=== PATIENT | male | born 1975 | race Caucasian/White ===

== ENCOUNTER 2020-08-04 12:47 | Emergency (ER) | payer OTHER, SELFPAY ==
[2020-08-04 13:00] VITALS: BP 120/77; PULSE 62; RESP 16; TEMP 36.8; O2SAT 99
--- NOTE | 2020-08-04 13:05 | ED.DENTAL ---
HPI - Dental/Oral General Chief complaint: Dental/Oral Stated complaint: infection in mouth Time Seen by Provider: 08/04/20 13:05 Source: patient History of Present Illness HPI Narrative: Patient presents with a long history of dental caries. Patient states he has not seen a dentist in many years. Patient states he has noticed more drainage from the right upper teeth. Patient denies any fever and is able to open his mouth fully. Patient states the drainage from the tooth is what brought him into the express care today. Teeth map: 1. fractured teeth 2. dental caris 3. swelling and tenderness to gums no drainable abscess Related Data Home Medications Medication Instructions Recorded Confirmed dicyclomine 20 mg PO QID 08/04/20 08/04/20 duloxetine 60 mg PO DAILY 08/04/20 08/04/20 famotidine 40 mg PO BID 08/04/20 08/04/20 irbesartan 150 mg PO DAILY 08/04/20 08/04/20 naproxen 500 mg PO BID 08/04/20 08/04/20 quetiapine 100 mg PO HS 08/04/20 08/04/20 Allergies Allergy/AdvReac Type Severity Reaction Status Date / Time aspirin Allergy Swelling Verified 08/04/20 13:13 of Lip/Tongue/Throat gabapentin Allergy Swelling Verified 08/04/20 13:13 Review of Systems Review of Systems: Narrative: CONSTITUTIONAL: Denies fever, chills, or sweats. EYES: Denies visual changes, redness, or discharge. ENT: Denies rhinorrhea, congestion, sore throat, or otalgia. NO FEVER. NO JAW SWELLING. NO NECK SWELLING. NO LIMITATION WITH SPEAKING OR SWALLOWING. HAS A HISTORY OF DENTAL CARIES. HAS NOT SEEN A DENTIST RECENTLY. CARDIOVASCULAR: Denies chest pain, palpitations, or edema. RESPIRATORY: Denies cough or dyspnea. GASTROINTESTINAL: Denies abdominal pain, nausea, vomiting, or diarrhea. GENITOURINARY: Denies dysuria or hematuria. SKIN: Denies rash or itching. MUSCULOSKELETAL: Denies back pain, joint pain, or myalgia. NEUROLOGIC: Denies headache, numbness, or weakness. PSYCHIATRIC: Denies anxiety or depression. [facility] Comments At time of signature, agree with nursing past medical, surgical, social and family history. There is no relevant family history pertinent to the presenting complaint Exam Narrative: Exam Narrative: GENERAL: Well-appearing, well-nourished, and in no acute distress. HEAD: Normocephalic, atraumatic. EYES: PERRLA and EOMI. ENT: Nares clear, no rhinorrhea or epistaxis. Mucous membranes moist. NO SHEEBA APICAL SWELLING, TOOTH TENDER TO PALPATION. NO FACIAL SWELLING. NO TRISMUS. ABLE TO OPEN MOUTH FULLY. NO NECK SWELLING OR AVA'S ANGINA. NO ABSCESS TO BE DRAINED. no drooling, trismus, facial asymmetry or significant neck swelling NECK: Supple. CHEST: Clear to auscultation. No respiratory distress. HEART: Regular rate and rhythm. No murmur heard. Normal peripheral pulses. ABDOMEN: Soft, nontender, nondistended, normal active bowel sounds. EXTREMITIES: Normal range of motion. No edema. SKIN: Warm, dry, no rash. NEURO: No focal deficits. Alert and oriented x3. [place] Coma Scale Eye Opening: Spontaneous 4 [place] Coma Scale Motor: Obeys Commands 6 [place] Coma Scale Verbal: Oriented 5 [place] Coma Scale Total 15 Course Vital Signs Vital signs: Vital Signs Temperature 36.8 C 08/04/20 13:00 Pulse Rate 62 08/04/20 13:00 Respiratory Rate 16 08/04/20 13:00 Blood Pressure 120/77 08/04/20 13:00 Pulse Oximetry 99 08/04/20 13:00 Temperature 36.8 C 08/04/20 13:00 Pulse Rate 62 08/04/20 13:00 Respiratory Rate 16 08/04/20 13:00 Blood Pressure 120/77 08/04/20 13:00 Pulse Oximetry 99 08/04/20 13:00 MDM - Dental/Oral Differential Diagnosis Differential diagnosis: Likely gingival abscess, dental caries, toothache, dental abscess, fracture of tooth and aphthous ulcer Critical Care Time Critical Care Time Critical Care Time: No Discharge Plan Discharge Clinical Impression: Toothache, Dental abscess, Dental caries, Fracture of tooth Patient Disposition: Home, Self-Care
== END 2020-08-04 13:26 | disposition home or self-care (01) ==
PROVIDERS: Emergency Provider Nurse Practitioner Family
DX: K08.89 Other specified disorders of teeth and supporting structures (principal); K04.7 Periapical abscess without sinus; K02.9 Dental caries, unspecified; S02.5XXA Fracture of tooth (traumatic), initial encounter for closed fracture; X58.XXXA Exposure to other specified factors, initial encounter; I10 Essential (primary) hypertension; M79.7 Fibromyalgia; F32.9 Major depressive disorder, single episode, unspecified
CPT/HCPCS: 99213; G0463

== ENCOUNTER 2020-12-23 11:01 | Emergency (ER) | payer OTHER, SELFPAY ==
[2020-12-23 11:13] VITALS: BP 129/77; PULSE 60; RESP 20; TEMP 37.2; O2SAT 98
--- NOTE | 2020-12-23 11:46 | ED.NAVMDI ---
HPI - Nausea/Vomiting/Diarrhea General Chief complaint: Nausea/Vomiting/Diarrhea Stated complaint: vomiting,stomach pain, needs work note Source: patient and RN notes reviewed Limitations: no limitations History of Present Illness HPI Narrative: The patient, non-smoker/nondrinker on several meds, presents with emesis. Patient states he had the onset of nonbilious emesisx1 at work at [employer] yesterday and was sent home; this was followed by 1 or 2 more episodes overnight. He attributes symptoms due to constipation , which has resolved this morning. Symptoms have improved or absent now, and he wants a work note, as well as refill of prior meds [some chronic, as result of pediatric head injury]. He has no fever, cough,SOB, wheezing, diarrhea, loss of taste/smell, abdominal pain, vomiting blood, sore throat, earache, prior abdominal surgeries, sick contacts . Clinic test for Covid antigen is negative Related Data Home Medications Medication Instructions Recorded Confirmed naproxen 500 mg PO BID 08/04/20 12/23/20 quetiapine 100 mg PO HS 08/04/20 12/23/20 montelukast [Singulair] 10 mg PO DAILY 12/23/20 12/23/20 Allergies Allergy/AdvReac Type Severity Reaction Status Date / Time aspirin Allergy Swelling Verified 12/23/20 11:31 of Lip/Tongue/Throat gabapentin Allergy Swelling Verified 12/23/20 11:31 Review of Systems Review of Systems: Narrative: General/Constitutional: No weight loss,fever Eyes: N0: Redness,discharge Ears/Nose/Throat: No: Epistaxis,ear discharge Respiratory: Denies: Hemoptysis Gastrointestinal: Reports Vomiting, no Bleeding-rectal Skin: No Lumps, eruption Neurologic: No Focal Weakness,Sz Hematologic: Denies: Petechiae/Purpura Psychiatric: No: Suicida ideationl All Other Systems: Reviewed and Negative [facility] Comments At time of signature, agree with nursing past medical, surgical, social and family history. There is no relevant family history pertinent to the presenting complaint Exam Narrative: Exam Narrative: General Appearance: Well appearing, Conjunctiva clear Ears: External ear normal Nose: Normal nose Mouth/Throat: Normal appearing, Normal lips Neck: Supple Respiratory: Airway patent, No respiratory distress Cardiovascular: RRR Abdomen: Soft, Non-tender, No massess, No organomegaly Musculoskeletal: Full ROM Skin: Warm, Dry Neurological: A&O x3,, Normal affect Course Vital Signs Vital signs: Vital Signs Temperature 98.9 F 12/23/20 11:13 Pulse Rate 60 12/23/20 11:13 Respiratory Rate 20 12/23/20 11:13 Blood Pressure 129/77 12/23/20 11:13 Pulse Oximetry 98 12/23/20 11:13 Temperature 98.9 F 12/23/20 11:13 Pulse Rate 60 12/23/20 11:13 Respiratory Rate 20 12/23/20 11:13 Blood Pressure 129/77 12/23/20 11:13 Pulse Oximetry 98 12/23/20 11:13 MDM - Nausea/Vomiting/Diarrhea Lab Data Labs: Lab Results 12/23/20 Range/Units Unknown POC SARS CoV-2 Ag Negative (Negative) Discharge Plan Discharge Clinical Impression: Vomiting Qualifiers: Vomiting type: unspecified Vomiting Intractability: non-intractable Nausea presence: without nausea Qualified Code(s): R11.11 - Vomiting without nausea Patient Disposition: Home, Self-Care Condition: Stable Prescriptions: New ondansetron HCl [Zofran] 4 mg tablet 4 mg PO Q8H PRN (Reason: nausea and vomiting) Qty: 10 RF: 0 losartan 25 mg tablet 25 mg PO DAILY Qty: 30 RF: 2 quetiapine 100 mg tablet 100 mg PO HS Qty: 30 RF: 2 No Action montelukast [Singulair] 10 mg Tablet 10 mg PO DAILY RF: 0 quetiapine 100 mg Tablet 100 mg PO HS RF: 0 naproxen 500 mg Tablet 500 mg PO BID RF: 0 Adult Probiotic 3 billion cell capsule 3,000 mmu cells PO DAILY Qty: 14 RF: 0 Other Ambulatory Orders: SARS-CoV-2 RNA, Qual RT-PCR (Routine) Location: Determined by Patient Ordered By: Jose A Potts Follow-up/Referrals: [facility]
== END 2020-12-23 11:58 | disposition home or self-care (01) ==
PROVIDERS: Emergency Provider Emergency Medicine
DX: R11.11 Vomiting without nausea (principal); Z20.822 Contact with and (suspected) exposure to COVID-19; I10 Essential (primary) hypertension; F32.9 Major depressive disorder, single episode, unspecified; M79.7 Fibromyalgia
CPT/HCPCS: 87426; 99213; C9803; G0463

== ENCOUNTER 2021-02-01 12:24 | Emergency (ER) | payer OTHER, SELFPAY ==
[2021-02-01 12:35] VITALS: BP 122/87; PULSE 60; RESP 20; TEMP 36.8; O2SAT 99
--- NOTE | 2021-02-01 12:43 | ED.DENTAL ---
HPI - Dental/Oral General Chief complaint: Dental/Oral Stated complaint: Nausea/Vomitting Time Seen by Provider: 02/01/21 12:43 Source: patient and RN notes reviewed History of Present Illness HPI Narrative: Patient is a 45-year-old male who presents the urgent care with complaints of needing a work note for 1 episode of vomiting yesterday. Patient then proceeds to say that he is here for dental pain . Patient states that he believes his vomiting x1 yesterday at work was related to his IBS and constipation. Patient states that he does have Zofran at home and uses it as needed for nausea. Patient denies of any upper respiratory symptoms. States that the dental pain has been going on for months and he currently does not have a dentist to follow-up with. Patient denies of any fever, chills, diarrhea or abdominal pain. Currently denies of any nausea or vomiting. No other acute complaints. No acute distress noted. Patient aware of the plan of care. Some parts of this dictation were generated by voice recognition software and may contain typographical and/or grammatical inaccuracies. Related Data Home Medications Medication Instructions Recorded Confirmed montelukast [Singulair] 10 mg PO DAILY 12/23/20 02/01/21 beclomethasone dipropionate [Qvar 1 inh INHALATION Q12H 02/01/21 02/01/21 RediHaler] famotidine 40 mg PO DAILY 02/01/21 02/01/21 pravastatin 20 mg PO DAILY 02/01/21 02/01/21 Allergies Allergy/AdvReac Type Severity Reaction Status Date / Time aspirin Allergy Swelling Verified 02/01/21 12:47 of Lip/Tongue/Throat gabapentin Allergy Swelling Verified 02/01/21 12:47 Review of Systems Review of Systems: Narrative: CONSTITUTIONAL: Denies fever, chills, or sweats. EYES: Denies visual changes, redness, or discharge. ENT: Denies rhinorrhea, congestion, sore throat, or otalgia. Reports of upper right dental pain CARDIOVASCULAR: Denies chest pain, palpitations, or edema. RESPIRATORY: Denies cough or dyspnea. GASTROINTESTINAL: Denies abdominal pain, nausea, vomiting, or diarrhea. GENITOURINARY: Denies dysuria or hematuria. SKIN: Denies rash or itching. MUSCULOSKELETAL: Denies back pain, joint pain, or myalgia. NEUROLOGIC: Denies headache, numbness, or weakness. All other systems reviewed are negative, except as documented in HPI. [facility] Comments At the time of my signature, I reviewed and agree with the nursing past medical, surgical, social, and family history. There is no relevant family history pertinent to the patient complaint. Exam Narrative: Exam Narrative: GENERAL: This is a well-nourished, well-developed patient, in no apparent distress. HEAD: normocephalic, atraumatic. EYES: PERRL. Sclera clear/white. Vision is grossly intact. EARS: External ears normal NOSE: External nose normal with no obvious nasal discharge, nares without redness, no rhinorrhea. THROAT: Mucous membranes moist DENTAL: Poor dental hygiene. Completely avulsed second premolar to the upper right with surrounding erythema and very mild edema. NECK: Neck supple SKIN: warm, intact with no suspicious lesions or rash, good texture and turgor. NEURO: awake, alert, and oriented to person, place and time. There were no obvious focal neurologic abnormalities. EXTREMITIES: No clubbing, cyanosis, or edema. Course Vital Signs Vital signs: Vital Signs Temperature 98.2 F 02/01/21 12:35 Pulse Rate 60 02/01/21 12:35 Respiratory Rate 20 02/01/21 12:35 Blood Pressure 122/87 02/01/21 12:35 Pulse Oximetry 99 02/01/21 12:35 Temperature 98.2 F 02/01/21 12:35 Pulse Rate 60 02/01/21 12:35 Respiratory Rate 20 02/01/21 12:35 Blood Pressure 122/87 02/01/21 12:35 Pulse Oximetry 99 02/01/21 12:35 Reviewed MDM - Dental/Oral MDM Narrative Medical decision making narrative: Advised the patient to use his at home supply of Zofran as needed for nausea. It appears that your one episode of vomiting is related to your c
== END 2021-02-01 12:58 | disposition home or self-care (01) ==
PROVIDERS: Emergency Provider Nurse Practitioner Family; PCP Family Medicine
DX: K04.7 Periapical abscess without sinus (principal); E78.00 Pure hypercholesterolemia, unspecified; I10 Essential (primary) hypertension; J45.909 Unspecified asthma, uncomplicated; K21.9 Gastro-esophageal reflux disease without esophagitis; M79.7 Fibromyalgia; F31.9 Bipolar disorder, unspecified
CPT/HCPCS: 99213; G0463

== ENCOUNTER 2021-12-20 11:11 | Emergency (ER) | payer OTHER, SELFPAY ==
[2021-12-20 11:17] VITALS: BP 119/84; PULSE 90; RESP 16; TEMP 36.7; O2SAT 99
--- NOTE | 2021-12-20 11:17 | ED.SKABFB ---
HPI - Skin/Abscess/Foreign Bdy General Chief complaint: Skin/Abscess/Foreign Body Stated complaint: left arm scratch poss infection Time Seen by Provider: 12/20/21 11:17 Source: patient and RN notes reviewed History of Present Illness HPI narrative: Patient is a 46-year-old male who presents the urgent care with complaints of a scratch to the left arm. Patient states that it worked 3 days ago he scratched it on a shelf. Patient states that yesterday it had a lot of redness which is since subsided. Patient denies of any fever, nausea, vomiting. Patient has been using Neosporin to the area. Denies any history of staph. Patient is not up-to-date on his tetanus shot. No other acute complaints. No acute distress noted. Patient read the plan of care. Some parts of this dictation were generated by voice recognition software and may contain typographical and/or grammatical inaccuracies. Related Data Home Medications Medication Instructions Recorded Confirmed montelukast [Singulair] 10 mg PO DAILY 12/23/20 12/20/21 famotidine 40 mg PO BID 02/01/21 12/20/21 pravastatin 20 mg PO DAILY 02/01/21 12/20/21 pregabalin 100 mg PO BID 12/20/21 12/20/21 Allergies Allergy/AdvReac Type Severity Reaction Status Date / Time amoxicillin Allergy Rash Verified 12/20/21 11:24 aspirin Allergy Swelling Verified 02/01/21 12:47 of Lip/Tongue/Throat gabapentin Allergy Swelling Verified 02/01/21 12:47 Review of Systems Review of Systems: CONSTITUTIONAL: Denies fever, chills, or sweats. EYES: Denies visual changes, redness, or discharge. ENT: Denies rhinorrhea, congestion, sore throat, or otalgia. CARDIOVASCULAR: Denies chest pain, palpitations, or edema. RESPIRATORY: Denies cough or dyspnea. GASTROINTESTINAL: Denies abdominal pain, nausea, vomiting, or diarrhea. GENITOURINARY: Denies dysuria or hematuria. SKIN: Reports of a possibly infected scratch to the left forearm MUSCULOSKELETAL: Denies back pain, joint pain, or myalgia. NEUROLOGIC: Denies headache, numbness, or weakness. All other systems reviewed are negative, except as documented in HPI. [facility] Comments At the time of my signature, I reviewed and agree with the nursing past medical, surgical, social, and family history. There is no relevant family history pertinent to the patient complaint. Exam Narrative: GENERAL: This is a well-nourished, well-developed patient, in no apparent distress. HEAD: normocephalic, atraumatic. EYES: PERRL. Sclera clear/white. Vision is grossly intact. EARS: External ears normal NOSE: External nose normal with no obvious nasal discharge, nares without redness, no rhinorrhea. THROAT: Mucous membranes moist NECK: Neck supple CARDIOVASCULAR: Regular rate and rhythm without murmurs, gallops, or rubs. RESPIRATORY: Clear to auscultation. Breath sounds equal bilaterally. No wheezes, rales, or rhonchi. SKIN: Healing 6 cm scabbed superficial linear abrasion to the left inner forearm with mild erythema to the area. 2 x 2 centimeter ecchymotic region near the abrasion. Warm, intact with no suspicious lesions or rash, good texture and turgor. NEURO: awake, alert, and oriented to person, place and time. There were no obvious focal neurologic abnormalities. EXTREMITIES: No clubbing, cyanosis, or edema. Course Course Level of Care: Express Care Visit Vital Signs Vital signs: Vital Signs Temperature 98.0 F 12/20/21 11:17 Pulse Rate 90 12/20/21 11:17 Respiratory Rate 16 12/20/21 11:17 Blood Pressure 119/84 12/20/21 11:17 Pulse Oximetry 99 12/20/21 11:17 Temperature 98.0 F 12/20/21 11:17 Pulse Rate 90 12/20/21 11:17 Respiratory Rate 16 12/20/21 11:17 Blood Pressure 119/84 12/20/21 11:17 Pulse Oximetry 99 12/20/21 11:17 Reviewed MDM - Skin/Abscess/Foreign Bdy MDM Narrative Medical decision making narrative: Advised patient to continue cleaning the area with plain Dial soap and water. Use the prescription cream to t
[2021-12-20] MEDS: TETANUS,DIPHTHERIA,AC PERTUSSIS ADULT (0.5 ML) BOOSTRIX IM (11:32)
== END 2021-12-20 11:53 | disposition home or self-care (01) ==
PROVIDERS: Emergency Provider Nurse Practitioner Family
DX: S50.812A Abrasion of left forearm, initial encounter (principal); W22.8XXA Striking against or struck by other objects, initial encounter; Z23 Encounter for immunization; E78.00 Pure hypercholesterolemia, unspecified; I10 Essential (primary) hypertension; J45.909 Unspecified asthma, uncomplicated; K21.9 Gastro-esophageal reflux disease without esophagitis; M79.7 Fibromyalgia; F31.9 Bipolar disorder, unspecified
CPT/HCPCS: 90471; 90715; 99213; G0463

== ENCOUNTER 2022-03-23 08:54 | Emergency (ER) | payer OTHER, SELFPAY ==
--- NOTE | ~2022-03-23 | XR_ITS ---
XR finger 2nd LT min 2V DATE: 03/23/2022 09:13 INDICATION: Smashed second digit in car door. Pain and bleeding around the medial. TECHNIQUE: 5 views COMPARISON: None FINDINGS: There is mild osteoarthritis at the second metacarpophalangeal and distal interphalangeal j oints. There is a nondisplaced linear fracture of the tuft of the distal phalanx. No other fracture is noted . No radiopaque soft tissue foreign body, subcutaneous emphysema dislocation, periosteal reaction or evelin ne destruction of the second digit is detected. 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 IMPRESSION: Mainly a nondisplaced fracture of the tuft of the distal phalanx Mild osteoarthritis at the second metacarpophalangeal and distal interphalangea l joints
[2022-03-23 09:01] VITALS: BP 116/73; PULSE 66; RESP 14; TEMP 36.9; O2SAT 100
--- NOTE | 2022-03-23 09:03 | ED.UPPEXIN ---
HPI - Extremity Injury (Upper) General Chief Complaint: Extremity Injury, Upper Stated Complaint: left pointer finger injury Time Seen by Provider: 03/23/22 09:03 Source: patient and RN notes reviewed History of Present Illness HPI narrative: Patient is a 46-year-old male who presents the urgent care with complaints of pain and bruising to the tip of the left index finger. Patient states that he smashed it in his car door last night. Patient is right-hand dominant. He has been taking his meloxicam which he takes daily for fibromyalgia. No other acute complaints or injuries. No acute distress noted. Patient aware of the plan of care. Some parts of this dictation were generated by voice recognition software and may contain typographical and/or grammatical inaccuracies. Related Data Home Medications Medication Instructions Recorded Confirmed montelukast [Singulair] 10 mg PO DAILY 12/23/20 12/20/21 famotidine 40 mg PO BID 02/01/21 12/20/21 pravastatin 20 mg PO DAILY 02/01/21 12/20/21 pregabalin 100 mg PO BID 12/20/21 12/20/21 Allergies Allergy/AdvReac Type Severity Reaction Status Date / Time amoxicillin Allergy Rash Verified 12/20/21 11:24 aspirin Allergy Swelling Verified 02/01/21 12:47 of Lip/Tongue/Throat gabapentin Allergy Swelling Verified 02/01/21 12:47 Review of Systems Review of Systems: CONSTITUTIONAL: Denies fever, chills, or sweats. EYES: Denies visual changes, redness, or discharge. ENT: Denies rhinorrhea, congestion, sore throat, or otalgia. CARDIOVASCULAR: Denies chest pain, palpitations, or edema. RESPIRATORY: Denies cough or dyspnea. GASTROINTESTINAL: Denies abdominal pain, nausea, vomiting, or diarrhea. GENITOURINARY: Denies dysuria or hematuria. SKIN: Denies rash or itching. MUSCULOSKELETAL: Reports of pain to the left index finger NEUROLOGIC: Denies headache, numbness, or weakness. All other systems reviewed are negative, except as documented in HPI. [facility] Comments At the time of my signature, I reviewed and agree with the nursing past medical, surgical, social, and family history. There is no relevant family history pertinent to the patient complaint. Exam Narrative: GENERAL: This is a well-nourished, well-developed patient, in no apparent distress. HEAD: normocephalic, atraumatic. EYES: PERRL. Sclera clear/white. Vision is grossly intact. EARS: External ears normal NOSE: External nose normal with no obvious nasal discharge, nares without redness, no rhinorrhea. THROAT: Mucous membranes moist NECK: Neck supple CARDIOVASCULAR: Regular rate and rhythm without murmurs, gallops, or rubs. RESPIRATORY: Clear to auscultation. Breath sounds equal bilaterally. No wheezes, rales, or rhonchi. SKIN: 0.25 cm linear fracture to the left index finger nailbed on the ulnar aspect with scant bloody drainage. Warm, intact with no suspicious lesions or rash, good texture and turgor. NEURO: awake, alert, and oriented to person, place and time. There were no obvious focal neurologic abnormalities. EXTREMITIES: Positive strong left radial pulse with capillary refill less than 2 seconds. Mild ecchymosis to the tuft of the left index finger with moderate tenderness. Range of motion to left upper extremity within normal limits. Course Course Level of Care: Express Care Visit Vital Signs Vital signs: Vital Signs Temperature 98.4 F 03/23/22 09:01 Pulse Rate 66 03/23/22 09:01 Respiratory Rate 14 03/23/22 09:01 Blood Pressure 116/73 03/23/22 09:01 Pulse Oximetry 100 03/23/22 09:01 Temperature 98.4 F 03/23/22 09:01 Pulse Rate 66 03/23/22 09:01 Respiratory Rate 14 03/23/22 09:01 Blood Pressure 116/73 03/23/22 09:01 Pulse Oximetry 100 03/23/22 09:01 Reviewed Procedures Orthopedic Splinting/Casting Injury #1: Side: left Upper Extremity Injury Location: finger Pre-Procedure Neuro Vascular Exam: normal Post-Procedure Neuro Vascular Exam: [email or web address]
== END 2022-03-23 09:45 | disposition home or self-care (01) ==
PROVIDERS: Emergency Provider Nurse Practitioner Family
DX: S62.661B Nondisplaced fracture of distal phalanx of left index finger, initial encounter for open fracture (principal); W23.0XXA Caught, crushed, jammed, or pinched between moving objects, initial encounter
CPT/HCPCS: 29130; 73140; 99214; G0463

== ENCOUNTER 2022-06-12 13:04 | Emergency (ER) | payer OTHER, SELFPAY ==
--- NOTE | ~2022-06-12 | XR_ITS ---
EXAMINATION: XR chest 2V DATE: 06/12/2022 13:28 INDICATION: Cough. TECHNIQUE: Frontal and lateral views of the chest were obtained. COMPARISON: None. FINDINGS: The chest demonstrates clear lungs without pneumonia, pleural effusion, or pneumothorax. Th e heart size is normal. IMPRESSION: 1. No acute cardiopulmonary disease. Reviewed, dictated and finalized at location A.
[2022-06-12 13:09] VITALS: BP 116/76; PULSE 71; RESP 20; TEMP 37.3; O2SAT 98
--- NOTE | 2022-06-12 13:10 | ED.EAR ---
HPI - Ear Problem General Chief complaint: Upper Respiratory Infection Stated complaint: Ear Pain Time Seen by Provider: 06/12/22 13:10 Source: patient Mode of arrival: ambulatory Limitations: no limitations History of Present Illness HPI Narrative: 46 yo M presents with c/o cough, nasal congestion, sinus pressure/pain since May 24. tested positive for covid beginning of may. Has not been taking any OTC meds to treat symptoms because he reports theyre not helping. afebrile. States yellow nasal mucous with bad odor and taste . concerned he has sinus infection. No SOB or CP but is still coughing. Has albuterol inhaler that he has been using. all systems reviewed and negative except as noted above. Related Data Home Medications Medication Instructions Recorded Confirmed montelukast 10 mg tablet 10 mg PO DAILY 12/23/20 06/12/22 (Singulair) famotidine 40 mg tablet 40 mg PO BID 02/01/21 06/12/22 pravastatin 20 mg tablet 20 mg PO DAILY 02/01/21 06/12/22 pregabalin 100 mg capsule 100 mg PO BID 12/20/21 06/12/22 fluticasone propionate 50 1 spray intranasal BID 03/23/22 06/12/22 mcg/actuation nasal spray,suspension losartan 100 mg tablet 100 mg PO DAILY 03/23/22 06/12/22 omeprazole 20 mg capsule,delayed 20 mg PO DAILY 03/23/22 06/12/22 release albuterol sulfate 90 mcg/actuation 90 mcg inhalation DIRECTED 06/12/22 06/12/22 aerosol inhaler benzonatate 100 mg capsule 100 mg PO DIRECTED 06/12/22 06/12/22 bupropion HCl 150 mg 24 hr tablet, 150 mg PO DIRECTED 06/12/22 06/12/22 extended release meloxicam 15 mg tablet 15 mg DIRECTED 06/12/22 06/12/22 Allergies Allergy/AdvReac Type Severity Reaction Status Date / Time aspirin Allergy Intermediate Swelling Verified 03/23/22 10:46 of Lip/Tongue/Throat gabapentin Allergy Intermediate Swelling Verified 03/23/22 10:46 amoxicillin Allergy Mild Rash Verified 03/23/22 10:46 Review of Systems Review of Systems: CONSTITUTIONAL: Denies fever, chills, or sweats. EYES: Denies visual changes, redness, or discharge. ENT: Reports rhinorrhea, congestion, sinus pain and pressure, yellow drainage. Denies sore throat, or otalgia. CARDIOVASCULAR: Denies chest pain, palpitations, or edema. RESPIRATORY: Reports cough. Denies dyspnea. GASTROINTESTINAL: Denies abdominal pain, nausea, vomiting, or diarrhea. GENITOURINARY: Denies dysuria or hematuria. SKIN: Denies rash or itching. MUSCULOSKELETAL: Denies back pain, joint pain, or myalgia. NEUROLOGIC: Denies headache, numbness, or weakness. PSYCHIATRIC: Denies anxiety or depression. All other systems reviewed are negative, except as documented in HPI. PMFSH Comments At time of signature, agree with nursing past medical, surgical, social and family history. There is no relevant family history pertinent to the presenting complaint. Exam Narrative: GENERAL: This is a well-nourished, well-developed patient, in no apparent distress. HEAD: normocephalic, atraumatic. EYES: PERRL. Sclera clear/white. Vision is grossly intact. EARS: External ears normal, auditory canals clear and without drainage, fluid to bilateral TMs, dull light reflex. NOSE: External nose normal with nasal drainage, erythema and swelling to nares. Bilateral maxillary sinus tenderness. THROAT: Mucous membranes moist, mild erythema to posterior pharynx with clear postnasal drainage. NECK: Neck supple, non-tender without lymphadenopathy, masses or thyromegaly. CARDIOVASCULAR: Regular rate and rhythm without murmurs, gallops, or rubs. RESPIRATORY: Clear to auscultation. Breath sounds equal bilaterally. No wheezes, rales, or rhonchi. SKIN: warm, Dry, intact with no suspicious lesions or rash, good texture and turgor. NEURO: awake, alert, and oriented to person, place and time. There were no obvious focal neurologic abnormalities. EXTREMITIES: No joint tenderness, effusion, or edema noted. Course Course Level of Care: Express Care Visit Vital Signs Vi
== END 2022-06-12 14:12 | disposition home or self-care (01) ==
PROVIDERS: Emergency Provider Nurse Practitioner Family
DX: J01.90 Acute sinusitis, unspecified (principal); E78.00 Pure hypercholesterolemia, unspecified; I10 Essential (primary) hypertension; J45.909 Unspecified asthma, uncomplicated; K21.9 Gastro-esophageal reflux disease without esophagitis; M79.7 Fibromyalgia; F41.9 Anxiety disorder, unspecified; F31.9 Bipolar disorder, unspecified
CPT/HCPCS: 71046; 99213; G0463

== ENCOUNTER 2022-06-23 14:16 | Emergency (ER) | payer OTHER, SELFPAY ==
--- NOTE | ~2022-06-23 | XR_ITS ---
EXAMINATION: XR chest 2V DATE: 06/23/2022 14:47 INDICATION: Right anterior chest discomfort. Cough. TECHNIQUE: frontal and lateral views of the chest were obtained. COMPARISON: Chest radiograph dated 06/12/2022 FINDINGS: The lungs remain clear with no focal airspace opacities, pulmonary edema, pleural effusion or pneumot horax. The cardiomediastinal silhouette is normal. Moderate thoracic spondylosis. IMPRESSION: 1. No acute cardiopulmonary disease. Reviewed, dictated and finalized at location A.
[2022-06-23 14:26] VITALS: BP 110/84; PULSE 86; RESP 20; TEMP 36.8; O2SAT 95
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
== END 2022-06-23 15:31 | disposition home or self-care (01) ==
PROVIDERS: Emergency Provider Registered Nurse
DX: R07.89 Other chest pain (principal); R05.9 Cough, unspecified; Z20.822 Contact with and (suspected) exposure to COVID-19; J45.909 Unspecified asthma, uncomplicated; M79.7 Fibromyalgia; K21.9 Gastro-esophageal reflux disease without esophagitis; E78.00 Pure hypercholesterolemia, unspecified; I10 Essential (primary) hypertension
CPT/HCPCS: 71046; 99213; G0463

== ENCOUNTER 2022-07-11 14:29 | Emergency (ER) | payer OTHER, SELFPAY ==
--- NOTE | ~2022-07-11 | XR_ITS ---
EXAMINATION: XR finger 2nd RT min 2V DATE: 07/11/2022 15:32 INDICATION: Hyperextension injury to the right second digit TECHNIQUE: Dorsal palmar, lateral and 2 oblique views of the right second digit were obtained COMPARISON: None FINDINGS: Bone alignment is normal. No fracture. Minimal to mild polyarticular osteoarthritis radial aspect of the carpus and at the second and third metacarpophalangeal and interphalangeal joints. Mild soft tiss ue swelling about the second proximal phalanx. IMPRESSION: 1. No acute osseous abnormality. Reviewed, dictated and finalized at location A.
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
[2022-07-11 14:36] VITALS: BP 110/74; PULSE 70; RESP 14; TEMP 36.6; O2SAT 98
== END 2022-07-11 15:47 | disposition home or self-care (01) ==
PROVIDERS: Emergency Provider Nurse Practitioner Family
DX: S63.610A Unspecified sprain of right index finger, initial encounter (principal); X58.XXXA Exposure to other specified factors, initial encounter; Y99.0 Civilian activity done for income or pay; F41.9 Anxiety disorder, unspecified; F32.A Depression, unspecified; Z86.16 Personal history of COVID-19; M79.7 Fibromyalgia; K21.9 Gastro-esophageal reflux disease without esophagitis; E78.00 Pure hypercholesterolemia, unspecified; I10 Essential (primary) hypertension
CPT/HCPCS: 29130; 73140; 99213; G0463

== ENCOUNTER 2022-07-14 11:09 | Emergency (ER) | payer OTHER, SELFPAY ==
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
[2022-07-14 11:15] VITALS: BP 138/77; PULSE 64; RESP 18; TEMP 36.7; O2SAT 98
== END 2022-07-14 11:25 | disposition home or self-care (01) ==
PROVIDERS: Emergency Provider Nurse Practitioner Family
DX: T23.252A Burn of second degree of left palm, initial encounter (principal); X19.XXXA Contact with other heat and hot substances, initial encounter; J45.909 Unspecified asthma, uncomplicated; M79.7 Fibromyalgia; K21.9 Gastro-esophageal reflux disease without esophagitis; E78.00 Pure hypercholesterolemia, unspecified; I10 Essential (primary) hypertension; Z86.16 Personal history of COVID-19; F41.9 Anxiety disorder, unspecified; F32.A Depression, unspecified
CPT/HCPCS: 99212; G0463

== ENCOUNTER 2022-08-16 15:05 | Emergency (ER) | payer OTHER, SELFPAY ==
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
[2022-08-16 15:09] VITALS: BP 122/72; PULSE 65; RESP 14; TEMP 36.8; O2SAT 98
[2022-08-16 15:17] VITALS: BP 122/72; PULSE 65; RESP 14; TEMP 36.8; O2SAT 98
== END 2022-08-16 15:26 | disposition home or self-care (01) ==
PROVIDERS: Emergency Provider Nurse Practitioner Family
DX: J01.90 Acute sinusitis, unspecified (principal); J45.909 Unspecified asthma, uncomplicated; M79.7 Fibromyalgia; K21.9 Gastro-esophageal reflux disease without esophagitis; E78.00 Pure hypercholesterolemia, unspecified; I10 Essential (primary) hypertension; F41.9 Anxiety disorder, unspecified; F32.A Depression, unspecified
CPT/HCPCS: 99213; G0463

== ENCOUNTER 2022-08-22 14:24 | Emergency (ER) | payer OTHER, SELFPAY ==
--- NOTE | ~2022-08-22 | XR_ITS ---
EXAMINATION: [id number] DATE: 08/22/2022 15:06 INDICATION: Left foot injury. TECHNIQUE: 4 views of left foot were obtained. COMPARISON: None. FINDINGS: There is mild valgus. No fracture. There is mild osteoarthritis of first metatarsophalangea l joint, talonavicular joint, and some of the interphalangeal joints. There is an enthesophyte at pos terior aspect of calcaneal tuberosity. IMPRESSION: 1. Mild polyarticular osteoarthritis. 2. Mild hallux valgus. Reviewed, dictated and finalized at location A.
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
[2022-08-22 14:29] VITALS: BP 123/82; PULSE 69; RESP 16; TEMP 36.3; O2SAT 98
== END 2022-08-22 15:26 | disposition home or self-care (01) ==
PROVIDERS: Emergency Provider Nurse Practitioner
DX: S93.602A Unspecified sprain of left foot, initial encounter (principal); X50.9XXA Other and unspecified overexertion or strenuous movements or postures, initial encounter; F41.9 Anxiety disorder, unspecified; F32.A Depression, unspecified; K21.9 Gastro-esophageal reflux disease without esophagitis; E78.00 Pure hypercholesterolemia, unspecified; I10 Essential (primary) hypertension; M79.7 Fibromyalgia; J45.909 Unspecified asthma, uncomplicated
CPT/HCPCS: 73630; 99213; G0463

== ENCOUNTER 2022-10-20 12:11 | Emergency (ER) | payer OTHER, SELFPAY ==
[2022-10-20 12:16] VITALS: BP 117/68; PULSE 99; RESP 20; TEMP 37.4; O2SAT 98
--- NOTE | 2022-10-20 13:41 | ED.DENTAL ---
HPI - Dental/Oral General Chief complaint: Dental/Oral Stated complaint: mouth pain Source: patient Mode of arrival: ambulatory Limitations: no limitations History of Present Illness HPI Narrative: 47-year-old male presents to [facility] with complaints of right lower tooth pain and mild right jaw swelling for the past 3 days. Patient is not established with a dentist. Patient has been taking [id number] Tylenol with minimal relief. Patient denies fevers, nausea, vomiting or diarrhea. Patient reports long history dental issues MD Complaint: tooth pain Location: Tooth # ([id number]) Onset (ago): day(s) (3) Duration: constant Severity: moderate Exacerbating factors: chewing, cold and drinking fluids Context: history of dental caries Related Data Home Medications Medication Instructions Recorded Confirmed montelukast 10 mg tablet 10 mg PO DAILY 12/23/20 10/20/22 (Singulair) famotidine 40 mg tablet 40 mg PO BID 02/01/21 10/20/22 pravastatin 20 mg tablet 20 mg PO DAILY 02/01/21 10/20/22 pregabalin 100 mg capsule 100 mg PO BID 12/20/21 10/20/22 losartan 100 mg tablet 100 mg PO DAILY 03/23/22 10/20/22 omeprazole 20 mg capsule,delayed 20 mg PO DAILY 03/23/22 10/20/22 release albuterol sulfate 90 mcg/actuation 90 mcg inhalation DIRECTED 06/12/22 10/20/22 aerosol inhaler bupropion HCl 150 mg 24 hr tablet, 150 mg PO DIRECTED 06/12/22 10/20/22 extended release meloxicam 15 mg tablet 15 mg DIRECTED 06/12/22 10/20/22 Allergies Allergy/AdvReac Type Severity Reaction Status Date / Time aspirin Allergy Intermediate Swelling Verified 10/20/22 13:25 of Lip/Tongue/Throat gabapentin Allergy Intermediate Swelling Verified 10/20/22 13:25 amoxicillin Allergy Mild Rash Verified 10/20/22 13:25 Review of Systems Constitutional: Constitutional: Denies chills, Denies fatigue, Denies fever(s) and Denies weakness ENT: Comments: Right lower dental pain Cardiovascular: Cardiovascular: Denies chest pain, Denies rapid heart rate, Denies radiating jaw, neck or arm pain and Denies slow heart rate Respiratory: Respiratory: Denies cough, Denies dyspnea and Denies wheezing Gastrointestinal: Gastrointestinal: Denies abdominal pain, Denies diarrhea, Denies nausea and Denies vomiting Integumentary/Breasts: Skin/Breast: Denies rash Neurologic: Denies dizziness Allergic/Immunologic: Allergic/Immunologic: Denies lip swelling, Denies throat swelling, Denies tongue swelling and Denies wheezing PMFSH Past Medical History Medical History Ankle fracture bilateral Anxiety and depression Asthma Bipolar 1 disorder COVID-19 may Fibromyalgia GERD (gastroesophageal reflux disease) History of dental problems Hypercholesterolemia Hypertension IBS (irritable bowel syndrome) Wrist fracture bilateral Surgical History Surgical History Hx of brain surgery trauma as child Hx of elbow surgery bilateral Social History Social History Smoking status: Never smoker Alcohol intake: unknown Substance use type: does not use Gender identity (if verbalized by the patient): Male Comments At time of signature, I agree with nursing past medical, surgical, social and family history. There is no relevant family history pertinent to the presenting complaint. Exam Const: General: healthy appearing and no acute distress Nutritional Appearance: well nourished Orientation/consciousness: patient oriented x3 Limitations: no limitations HENMT: Teeth and gingiva: abnormal tooth and associated gingiva (Multiple teeth have large amount of decay and dental caries noted) Throat: posterior oropharynx normal and uvula midline Other: No dental abscess noted Neck: Neck: normal visual inspection Resp: Effort & Inspection: normal respiratory effort and not
== END 2022-10-20 14:00 | disposition home or self-care (01) ==
PROVIDERS: Emergency Provider Nurse Practitioner Family
DX: K08.89 Other specified disorders of teeth and supporting structures (principal); M79.7 Fibromyalgia; K21.9 Gastro-esophageal reflux disease without esophagitis; E78.00 Pure hypercholesterolemia, unspecified; I10 Essential (primary) hypertension; F41.9 Anxiety disorder, unspecified; F32.A Depression, unspecified
CPT/HCPCS: 99213; G0463

== ENCOUNTER 2022-11-21 12:33 | Emergency (ER) | payer OTHER, SELFPAY ==
--- NOTE | 2022-11-21 12:37 | ED.UPPEXIN ---
HPI - Extremity Injury (Upper) General Chief Complaint: Extremity Injury, Upper Stated Complaint: Right Arm Pain Time Seen by Provider: 11/21/22 12:37 Source: patient and RN notes reviewed History of Present Illness HPI narrative: patient is a 47-year-old male who presents to urgent care with complaints of right upper arm pain. Patient states that he lifted a box at home last Friday and her knee pop in his upper arm. Patient states he has been taking meloxicam and ibuprofen according to his PCP. Patient has not been seen by his doctor and does not have an appointment until December 06. Patient states he works for [employer] and was hoping to get work restrictions. No other acute complaints. No acute distress noted. Patient aware of the plan of care. Some parts of this dictation were generated by voice recognition software and may contain typographical and/or grammatical inaccuracies. Related Data Home Medications Medication Instructions Recorded Confirmed montelukast 10 mg tablet 10 mg PO DAILY 12/23/20 10/20/22 (Singulair) famotidine 40 mg tablet 40 mg PO BID 02/01/21 10/20/22 pravastatin 20 mg tablet 20 mg PO DAILY 02/01/21 10/20/22 pregabalin 100 mg capsule 100 mg PO BID 12/20/21 10/20/22 losartan 100 mg tablet 100 mg PO DAILY 03/23/22 10/20/22 omeprazole 20 mg capsule,delayed 20 mg PO DAILY 03/23/22 10/20/22 release albuterol sulfate 90 mcg/actuation 90 mcg inhalation DIRECTED 06/12/22 10/20/22 aerosol inhaler bupropion HCl 150 mg 24 hr tablet, 150 mg PO DIRECTED 06/12/22 10/20/22 extended release meloxicam 15 mg tablet 15 mg DIRECTED 06/12/22 10/20/22 Allergies Allergy/AdvReac Type Severity Reaction Status Date / Time aspirin Allergy Intermediate Swelling Verified 11/21/22 12:53 of Lip/Tongue/Throat gabapentin Allergy Intermediate Swelling Verified 11/21/22 12:53 amoxicillin Allergy Mild Rash Verified 11/21/22 12:53 Review of Systems Review of Systems: CONSTITUTIONAL: Denies fever, chills, or sweats. EYES: Denies visual changes, redness, or discharge. ENT: Denies rhinorrhea, congestion, sore throat, or otalgia. CARDIOVASCULAR: Denies chest pain, palpitations, or edema. RESPIRATORY: Denies cough or dyspnea. GASTROINTESTINAL: Denies abdominal pain, nausea, vomiting, or diarrhea. GENITOURINARY: Denies dysuria or hematuria. SKIN: Denies rash or itching. MUSCULOSKELETAL: Reports right upper arm pain NEUROLOGIC: Denies headache, numbness, or weakness. All other systems reviewed are negative, except as documented in HPI. [facility] Past Medical History Medical History Ankle fracture bilateral Anxiety and depression Asthma Bipolar 1 disorder COVID-19 may Fibromyalgia GERD (gastroesophageal reflux disease) History of dental problems Hypercholesterolemia Hypertension IBS (irritable bowel syndrome) Wrist fracture bilateral Surgical History Surgical History Hx of brain surgery trauma as child Hx of elbow surgery bilateral Social History Social History Smoking status: Never smoker Alcohol intake: unknown Substance use type: does not use Gender identity (if verbalized by the patient): Male Comments At the time of my signature, I reviewed and agree with the nursing past medical, surgical, social, and family history. There is no relevant family history pertinent to the patient complaint. Exam Narrative: GENERAL: This is a well-nourished, well-developed patient, in no apparent distress. HEAD: normocephalic, atraumatic. EYES: PERRL. Sclera clear/white. Vision is grossly intact. EARS: External ears normal NOSE: External nose normal with no obvious nasal discharge, nares without redness, no rhinorrhea. THROAT: Mucous membranes moist NECK: Neck supple SKIN: warm, intact with no suspicious lesions
[2022-11-21 12:43] VITALS: BP 121/72; PULSE 68; RESP 16; TEMP 36.6; O2SAT 100
== END 2022-11-21 13:05 | disposition home or self-care (01) ==
PROVIDERS: Emergency Provider Nurse Practitioner Family
DX: M79.621 Pain in right upper arm (principal); J45.909 Unspecified asthma, uncomplicated; M79.7 Fibromyalgia; K21.9 Gastro-esophageal reflux disease without esophagitis; E78.00 Pure hypercholesterolemia, unspecified; I10 Essential (primary) hypertension; Z86.16 Personal history of COVID-19; F41.9 Anxiety disorder, unspecified; F31.9 Bipolar disorder, unspecified
CPT/HCPCS: 99212; G0463

== ENCOUNTER 2023-07-21 18:00 | Emergency (ER) | payer OTHER, SELFPAY ==
[2023-07-21 18:13] VITALS: BP 101/68; PULSE 71; RESP 16; TEMP 36.4; O2SAT 99
--- NOTE | 2023-07-21 18:20 | ED.UPPEXIN ---
HPI - Extremity Injury (Upper) General Chief Complaint: Extremity Injury, Upper Stated Complaint: Right Arm Pain Source: patient and RN notes reviewed History of Present Illness HPI narrative: 47 yo M presents to urgent care with complaints of right FA pain. Pt states he doesn't know if he over-worked it yesterday but denies any specific injury. 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 Reports chronic neuropathy but denies any new or worsening tingling. Pt has taken his normal meloxicam without relief. Related Data Home Medications Medication Instructions Recorded Confirmed montelukast 10 mg tablet 10 mg PO DAILY 12/23/20 11/21/22 (Singulair) famotidine 40 mg tablet 40 mg PO BID 02/01/21 11/21/22 pravastatin 20 mg tablet 20 mg PO DAILY 02/01/21 11/21/22 pregabalin 100 mg capsule 100 mg PO BID 12/20/21 11/21/22 losartan 100 mg tablet 100 mg PO DAILY 03/23/22 11/21/22 omeprazole 20 mg capsule,delayed 20 mg PO DAILY 03/23/22 11/21/22 release albuterol sulfate 90 mcg/actuation 90 mcg inhalation DIRECTED 06/12/22 11/21/22 aerosol inhaler bupropion HCl 150 mg 24 hr tablet, 150 mg PO DIRECTED 06/12/22 11/21/22 extended release meloxicam 15 mg tablet 15 mg DIRECTED 06/12/22 11/21/22 Allergies Allergy/AdvReac Type Severity Reaction Status Date / Time aspirin Allergy Intermediate Swelling Verified 11/21/22 12:53 of Lip/Tongue/Throat gabapentin Allergy Intermediate Swelling Verified 11/21/22 12:53 amoxicillin Allergy Mild Rash Verified 11/21/22 12:53 Review of Systems Review of Systems: CONSTITUTIONAL: Denies fever, chills, or sweats. EYES: Denies visual changes, redness, or discharge. ENT: Denies otalgia and sore throat CARDIOVASCULAR: Denies chest pain, palpitations, or edema. RESPIRATORY: Denies cough or dyspnea. GASTROINTESTINAL: Denies abdominal pain, nausea, vomiting, or diarrhea. GENITOURINARY: Denies dysuria or hematuria. SKIN: Denies rash or itching. MUSCULOSKELETAL: Right forearm pain NEUROLOGIC: Denies headache, numbness, or weakness. Pertinent positives per HPI. [facility] Past Medical History Medical History Ankle fracture bilateral Anxiety and depression Asthma Bipolar 1 disorder COVID-19 may Fibromyalgia GERD (gastroesophageal reflux disease) History of dental problems Hypercholesterolemia Hypertension IBS (irritable bowel syndrome) Wrist fracture bilateral Surgical History Surgical History Hx of brain surgery trauma as child Hx of elbow surgery bilateral Social History Social History Smoking status: Never smoker Alcohol intake: unknown Substance use type: does not use Living arrangements: with family Gender identity (if verbalized by the patient): Male Comments At the time of my signature, I reviewed and agree with the nursing past medical, surgical, social, and family history. There is no relevant family history pertinent to the patient complaint. Exam Narrative: GENERAL: This is a well-nourished, well-developed patient, in no apparent distress. HEAD: normocephalic, atraumatic. EYES: Sclera clear/white. Vision is grossly intact. EARS: External ears normal, auditory canals clear and without drainage, TMs normal without perforation. Hearing grossly intact. NOSE: External nose normal with no obvious nasal discharge, nares without redness, no rhinorrhea. THROAT: Mucous membranes moist, posterior pharynx clear. NECK: Neck supple, non-tender without lymphadenopathy, masses or thyromegaly. CARDIOVASCULAR: Regular rate and rhythm without murmurs, gallops, or rubs. RESPIRATORY: Clear to auscultation. Breath sounds equal bilaterally. No wheezes, rales, or rhonchi. GASTROINTESTINAL: Abdomen soft, non-tende
== END 2023-07-21 18:26 | disposition home or self-care (01) ==
PROVIDERS: Emergency Provider Nurse Practitioner Family
DX: S56.911A Strain of unspecified muscles, fascia and tendons at forearm level, right arm, initial encounter (principal); X58.XXXA Exposure to other specified factors, initial encounter; F41.9 Anxiety disorder, unspecified; F32.A Depression, unspecified; J45.909 Unspecified asthma, uncomplicated; M79.7 Fibromyalgia; K21.9 Gastro-esophageal reflux disease without esophagitis; E78.00 Pure hypercholesterolemia, unspecified; I10 Essential (primary) hypertension; G62.9 Polyneuropathy, unspecified; Z86.16 Personal history of COVID-19
CPT/HCPCS: 99212; G0463

== ENCOUNTER 2023-07-29 10:39 | Emergency (ER) | payer OTHER, SELFPAY ==
[2023-07-29 10:48] VITALS: BP 132/79; PULSE 85; RESP 16; TEMP 36.8; O2SAT 98
--- NOTE | 2023-07-29 12:05 | ED.SKABFB ---
HPI - Skin/Abscess/Foreign Bdy General Chief complaint: Skin/Abscess/Foreign Body Stated complaint: knot on head Time Seen by Provider: 07/29/23 11:30 Source: patient, RN notes reviewed and old records reviewed Mode of arrival: ambulatory Limitations: no limitations History of Present Illness HPI narrative: 47-year-old male [facility] with red raised blistery lesion on his right forehead ,has been there for 2 days. Patient has burning pain to rash area and states some burning around right eye with no visual changes., No rash or redness noted around right eye right or any change in vision. Lesion on forehead irregular in shape, raised with vesicle noted with no drainage approximate 1cm diameter. Patient has not taken any OTC medication for his discomfort. MD complaint: lesion Onset (ago): day(s) (2) Severity scale (1-10): 4 Quality: burning Treatments prior to arrival: none Related Data Home Medications Medication Instructions Recorded Confirmed montelukast 10 mg tablet 10 mg PO DAILY 12/23/20 07/29/23 (Singulair) famotidine 40 mg tablet 40 mg PO BID 02/01/21 07/29/23 pravastatin 20 mg tablet 20 mg PO DAILY 02/01/21 07/29/23 pregabalin 100 mg capsule 100 mg PO BID 12/20/21 07/29/23 losartan 100 mg tablet 100 mg PO DAILY 03/23/22 07/29/23 omeprazole 20 mg capsule,delayed 20 mg PO DAILY 03/23/22 07/29/23 release albuterol sulfate 90 mcg/actuation 90 mcg inhalation DIRECTED 06/12/22 07/29/23 aerosol inhaler bupropion HCl 150 mg 24 hr tablet, 150 mg PO DIRECTED 06/12/22 07/29/23 extended release meloxicam 15 mg tablet 15 mg DIRECTED 06/12/22 07/29/23 Allergies Allergy/AdvReac Type Severity Reaction Status Date / Time aspirin Allergy Intermediate Swelling Verified 07/29/23 10:56 of Lip/Tongue/Throat gabapentin Allergy Intermediate Swelling Verified 07/29/23 10:56 amoxicillin Allergy Mild Rash Verified 07/29/23 10:56 Review of Systems Review of Systems: CONSTITUTIONAL: Denies fever, chills, or sweats. CARDIOVASCULAR: Denies chest pain, palpitations, or edema. RESPIRATORY: Denies cough or dyspnea. SKIN: Reports red raised lesion to his forehead right side MUSCULOSKELETAL: Denies joint pain or myalgia. NEUROLOGIC: Denies headache, numbness, or weakness. All systems reviewed & are unremarkable except as noted in HPI and below PMFSH Past Medical History Medical History Ankle fracture bilateral Anxiety and depression Asthma Bipolar 1 disorder COVID-19 may Fibromyalgia GERD (gastroesophageal reflux disease) History of dental problems Hypercholesterolemia Hypertension IBS (irritable bowel syndrome) Wrist fracture bilateral Surgical History Surgical History Hx of brain surgery trauma as child Hx of elbow surgery bilateral Social History Social History Smoking status: Never smoker Alcohol intake: unknown Substance use type: does not use Living arrangements: with family Gender identity (if verbalized by the patient): Male Comments At time of signature, agree with nursing past medical, surgical, social and family history. There is no relevant family history pertinent to the presenting complaint Exam Narrative: GENERAL: Well-appearing, well-nourished, and in no acute distress. HEAD: Normocephalic, atraumatic. EYES: PERRLA, conjunctivae clear, and EOMI.no nystagmus no visual changes ENT: Mucous membranes moist. Oropharynx without edema, erythema or lesions. NECK: Supple. No lymphadenopathy CHEST: Clear to auscultation. No respiratory distress.SAO2 98% on room air HEART: Regular rate and rhythm. SKIN: Warm, dry.?1cm diameter irregular shaped red raised lesion with pustule to right forehead reports burning to area and around his right eye with no other identifi
== END 2023-07-29 12:24 | disposition home or self-care (01) ==
PROVIDERS: Emergency Provider Registered Nurse
DX: B02.9 Zoster without complications (principal); J45.909 Unspecified asthma, uncomplicated; M79.7 Fibromyalgia; K21.9 Gastro-esophageal reflux disease without esophagitis; E78.00 Pure hypercholesterolemia, unspecified; I10 Essential (primary) hypertension; F41.9 Anxiety disorder, unspecified; F32.A Depression, unspecified; Z86.16 Personal history of COVID-19
CPT/HCPCS: 99213; G0463

== ENCOUNTER 2023-10-18 17:36 | Emergency (ER) | payer OTHER, SELFPAY ==
[2023-10-18 17:44] VITALS: BP 115/62; PULSE 75; RESP 16; TEMP 36.1; O2SAT 98
--- NOTE | 2023-10-18 17:46 | ED.DENTAL ---
HPI - Dental/Oral General Chief complaint: Dental/Oral Stated complaint: Toothache Source: patient and RN notes reviewed History of Present Illness HPI Narrative: 48 yo M presents to urgent care with complaints of left upper dental pain and left upper facial swelling. Pt states he felt the dental pain last night but today woke up with facial swelling and increased pain. Denies any trouble swallowing or breathing. Denies any fevers or vomiting. Pt states he does not have a dentist b/c he has [place]. Related Data Home Medications Medication Instructions Recorded Confirmed montelukast 10 mg tablet 10 mg PO DAILY 12/23/20 07/29/23 (Singulair) famotidine 40 mg tablet 40 mg PO BID 02/01/21 07/29/23 pravastatin 20 mg tablet 20 mg PO DAILY 02/01/21 07/29/23 pregabalin 100 mg capsule 100 mg PO BID 12/20/21 07/29/23 losartan 100 mg tablet 100 mg PO DAILY 03/23/22 07/29/23 omeprazole 20 mg capsule,delayed 20 mg PO DAILY 03/23/22 07/29/23 release albuterol sulfate 90 mcg/actuation 90 mcg inhalation DIRECTED 06/12/22 07/29/23 aerosol inhaler bupropion HCl 150 mg 24 hr tablet, 150 mg PO DIRECTED 06/12/22 07/29/23 extended release meloxicam 15 mg tablet 15 mg DIRECTED 06/12/22 07/29/23 Allergies Allergy/AdvReac Type Severity Reaction Status Date / Time aspirin Allergy Intermediate Swelling Verified 07/29/23 10:56 of Lip/Tongue/Throat gabapentin Allergy Intermediate Swelling Verified 07/29/23 10:56 amoxicillin Allergy Mild Rash Verified 07/29/23 10:56 Review of Systems Review of Systems: CONSTITUTIONAL: Denies fever, chills, or sweats. EYES: Denies visual changes, redness, or discharge. ENT: Denies otalgia and sore throat CARDIOVASCULAR: Denies chest pain, palpitations, or edema. RESPIRATORY: Denies cough or dyspnea. GASTROINTESTINAL: Denies abdominal pain, nausea, vomiting, or diarrhea. GENITOURINARY: Denies dysuria or hematuria. SKIN: Denies rash or itching. MUSCULOSKELETAL: Denies back pain, joint pain, or myalgia. NEUROLOGIC: Denies headache, numbness, or weakness. Pertinent positives per HPI. PMFSH Past Medical History Medical History Ankle fracture bilateral Anxiety and depression Asthma Bipolar 1 disorder COVID-19 may Fibromyalgia GERD (gastroesophageal reflux disease) History of dental problems Hypercholesterolemia Hypertension IBS (irritable bowel syndrome) Wrist fracture bilateral Surgical History Surgical History Hx of brain surgery trauma as child Hx of elbow surgery bilateral Social History Social History Smoking status: Never smoker Alcohol intake: unknown Substance use type: does not use Living arrangements: with family Gender identity (if verbalized by the patient): Male Comments At the time of my signature, I reviewed and agree with the nursing past medical, surgical, social, and family history. There is no relevant family history pertinent to the patient complaint. Exam Narrative: GENERAL: This is a well-nourished, well-developed patient, in no apparent distress. HEAD: normocephalic, atraumatic. EYES: Sclera clear/white. Vision is grossly intact. EARS: External ears normal, auditory canals clear and without drainage. Hearing grossly intact. NOSE: External nose normal with no obvious nasal discharge, nares without redness, no rhinorrhea. THROAT: Mucous membranes moist, posterior pharynx clear. MOUTH: tooth # 11 missing with gums swollen. NECK: Neck supple, non-tender without lymphadenopathy, masses or thyromegaly. CARDIOVASCULAR: Regular rate RESPIRATORY: No respiratory distress SKIN: warm, intact with no suspicious lesions or rash, good texture and turgor. NEURO: awake, alert, and oriented to person, place and time. There were no obvious focal neurologic abnorma
== END 2023-10-18 18:08 | disposition home or self-care (01) ==
PROVIDERS: Emergency Provider Nurse Practitioner Family
DX: K04.7 Periapical abscess without sinus (principal); J45.909 Unspecified asthma, uncomplicated; M79.7 Fibromyalgia; K21.9 Gastro-esophageal reflux disease without esophagitis; E78.00 Pure hypercholesterolemia, unspecified; I10 Essential (primary) hypertension; F41.9 Anxiety disorder, unspecified; F32.A Depression, unspecified
CPT/HCPCS: 99213; G0463

== ENCOUNTER 2023-12-04 15:41 | Emergency (ER) | payer OTHER, SELFPAY ==
[2023-12-04 15:49] VITALS: BP 110/67; PULSE 61; RESP 18; TEMP 36.3; O2SAT 100
--- NOTE | 2023-12-04 15:55 | ED.GENADULT ---
HPI - General Adult General Chief complaint: Upper Respiratory Infection Stated complaint: nausea/cough/fever Source: patient, RN notes reviewed and old records reviewed Mode of arrival: ambulatory Limitations: no limitations History of Present Illness HPI narrative: 48-year-old male presents to [facility] with complaint runny nose, congestion, slight cough for 1 week, then yesterday started having nausea and vomiting, fatigue, myalgia. Patient not taking any [id number] medications for symptoms. Patient denies weakness, dizziness, chest pain, shortness of breath. MD complaint: N/V Related Data Home Medications Medication Instructions Recorded Confirmed montelukast 10 mg tablet 10 mg PO DAILY 12/23/20 07/29/23 (Singulair) famotidine 40 mg tablet 40 mg PO BID 02/01/21 07/29/23 pravastatin 20 mg tablet 20 mg PO DAILY 02/01/21 07/29/23 pregabalin 100 mg capsule 100 mg PO BID 12/20/21 07/29/23 losartan 100 mg tablet 100 mg PO DAILY 03/23/22 07/29/23 omeprazole 20 mg capsule,delayed 20 mg PO DAILY 03/23/22 07/29/23 release albuterol sulfate 90 mcg/actuation 90 mcg inhalation DIRECTED 06/12/22 07/29/23 aerosol inhaler bupropion HCl 150 mg 24 hr tablet, 150 mg PO DIRECTED 06/12/22 07/29/23 extended release folic acid 1 mg tablet 12/04/23 Allergies Allergy/AdvReac Type Severity Reaction Status Date / Time aspirin Allergy Intermediate Swelling Verified 07/29/23 10:56 of Lip/Tongue/Throat gabapentin Allergy Intermediate Swelling Verified 07/29/23 10:56 amoxicillin Allergy Mild Rash Verified 07/29/23 10:56 tomato Allergy Ulcers Verified 12/04/23 16:04 Review of Systems Constitutional: Constitutional: Reports no additional constitutional complaints, Reports body ache(s), Denies chills, Reports fatigue, Denies fever(s) and Denies headache(s) Eyes: Eyes: Reports no additional eye complaints and Denies blurry vision ENT: Reports system reviewed and no additional complaints, except as documented, Denies vertigo, Denies dizziness, Denies ear discharge, Denies otalgia, Denies facial pain, Denies headache(s), Reports nasal congestion, Reports nasal discharge, Denies sinus pain, Denies sinus pressure and Denies sore throat Cardiovascular: Cardiovascular: Reports no additional cardiovascular complaints, Denies chest pain, Denies chest pain at rest, Denies rapid heart rate and Denies dyspnea Respiratory: Respiratory: Reports no additional respiratory complaints, Denies chest congestion, Reports cough, Denies pain on inspiration, Denies pain with cough and Denies dyspnea Gastrointestinal: Gastrointestinal: Denies abdominal pain, Denies diarrhea, Reports nausea and Reports vomiting Integumentary/Breasts: Skin/Breast: Denies rash Neurologic: Reports system reviewed and no additional complaints, except as documented, Denies vertigo, Denies dizziness and Denies headache(s) Endocrine: Endocrine: Denies fatigue [facility] Past Medical History Medical History Ankle fracture bilateral Anxiety and depression Asthma Bipolar 1 disorder COVID-19 may Fibromyalgia GERD (gastroesophageal reflux disease) History of dental problems Hypercholesterolemia Hypertension IBS (irritable bowel syndrome) Wrist fracture bilateral Surgical History Surgical History Hx of brain surgery trauma as child Hx of elbow surgery bilateral Social History Social History Smoking status: Never smoker Alcohol intake: unknown Substance use type: does not use Living arrangements: with family Gender identity (if verbalized by the patient): Male Comments At the time of my signature, I reviewed and agree with the nursing past medical, surgical, social, and family history. There is no relevant family history pertinent to the patient complaint.
== END 2023-12-04 16:25 | disposition home or self-care (01) ==
PROVIDERS: Emergency Provider Registered Nurse
DX: B34.9 Viral infection, unspecified (principal); Z20.822 Contact with and (suspected) exposure to COVID-19; J45.909 Unspecified asthma, uncomplicated; M79.7 Fibromyalgia; K21.9 Gastro-esophageal reflux disease without esophagitis; E78.00 Pure hypercholesterolemia, unspecified; I10 Essential (primary) hypertension; Z86.16 Personal history of COVID-19; F41.9 Anxiety disorder, unspecified; F32.A Depression, unspecified
CPT/HCPCS: 87426; 87804; 99213; G0463

== ENCOUNTER 2024-03-13 13:41 | Emergency (ER) | payer OTHER, SELFPAY ==
[2024-03-13 13:48] VITALS: BP 121/78; PULSE 72; RESP 20; TEMP 36.6; O2SAT 99
--- NOTE | 2024-03-13 13:56 | ED_ITS ---
HPI - General Adult General Chief complaint: Extremity Injury, Lower Stated complaint: fall,shoulder pain Source: patient, RN notes reviewed and old records reviewed Mode of arrival: ambulatory Limitations: no limitations History of Present Illness HPI narrative: 48-year-old male patient presents to [facility] with complaint of bilateral shoulder pain that started 3 weeks ago following a fall. Patient states pain has slowly worsened over last 3 weeks. Patient states her stool moves arms.Patient taking [id number] medications with no relief. Related Data Home Medications Medication Instructions Recorded Confirmed montelukast 10 mg tablet 10 mg PO DAILY 12/23/20 07/29/23 (Singulair) famotidine 40 mg tablet 40 mg PO BID 02/01/21 07/29/23 pravastatin 20 mg tablet 20 mg PO DAILY 02/01/21 07/29/23 pregabalin 100 mg capsule 100 mg PO BID 12/20/21 07/29/23 losartan 100 mg tablet 100 mg PO DAILY 03/23/22 07/29/23 omeprazole 20 mg capsule,delayed 20 mg PO DAILY 03/23/22 07/29/23 release albuterol sulfate 90 mcg/actuation 90 mcg inhalation DIRECTED 06/12/22 07/29/23 aerosol inhaler bupropion HCl 150 mg 24 hr tablet, 150 mg PO DIRECTED 06/12/22 07/29/23 extended release folic acid 1 mg tablet 12/04/23 Allergies Allergy/AdvReac Type Severity Reaction Status Date / Time aspirin Allergy Intermediate Swelling Verified 07/29/23 10:56 of Lip/Tongue/Throat gabapentin Allergy Intermediate Swelling Verified 07/29/23 10:56 amoxicillin Allergy Mild Rash Verified 07/29/23 10:56 tomato Allergy Ulcers Verified 12/04/23 16:04 Review of Systems Constitutional: Constitutional: Reports no additional constitutional complaints, Denies body ache(s), Denies chills, Denies fatigue, Denies fever(s) and Denies headache(s) Eyes: Eyes: Reports no additional eye complaints and Denies blurry vision ENT: Reports system reviewed and no additional complaints, except as d ocumented, Denies vertigo, Denies dizziness, Denies ear discharge, Denies otalgia, Denies facial pain, Denies headache(s), Denies nasal congestion, Denies nasal discharge, Denies sinus pain, Denies sinus pressure and Denies sore throat Cardiovascular: Cardiovascular: Reports no additional cardiovascular complaints, Denies chest pain, Denies chest pain at rest, Denies rapid heart rate and Denies dyspnea Respiratory: Respiratory: Reports no additional respiratory complaints, Denies chest congestion, Denies cough, Denies pain on inspiration, Denies pain with cough and Denies dyspnea Gastrointestinal: Gastrointestinal: Denies abdominal pain, Denies diarrhea, Denies nausea and Denies vomiting Musculoskeletal: Musculoskeletal: Reports as per HPI Comments: Bilateral shoulder pain Integumentary/Breasts: Skin/Breast: Denies rash Neurologic: Reports system reviewed and no additional complaints, except as documented, Denies vertigo, Denies dizziness and Denies headache(s) Endocrine: Endocrine: Denies fatigue [facility] Past Medical History Medical History Ankle fracture bilateral Anxiety and depression Asthma Bipolar 1 disorder COVID-19 may Fibromyalgia GERD (gastroesophageal reflux disease) History of dental problems Hypercholesterolemia Hypertension IBS (irritable bowel syndrome) Wrist fracture bilateral Surgical History Surgical History Hx of brain surgery trauma as child Hx of elbow surgery bilateral Social History Social History Smoking status: Never smoker Alcohol intake: unknown Substance use type: does not use Living arrangements: with family Gender identity (if verbalized by the patient): Male Comments At the time of my signature, I reviewed and agree with the nursing past medical, surgical, social, and family history. There is no relevant family history pertinent to the patient complaint. Exam Const: General: cooperative, healthy appearing, no acute distress and well nourished Nutritional Appearance: well nourished Orientation/consciousness: patient oriented x3 Limitations: no limitations HENMT: Head: normal to inspection and normocephalic Ears: external ears normal Face/Nose/Sinus: normal facial exam Face and sinus: normal facial exam Mouth: Yes Normal oral and palatal mucosa present, Yes oropharynx normal and Yes moist mucous membranes Eyes: General: appearance normal, both eyes and all related structures Sclera: sclerae normal Pupils: Equal, round and reactive pupils present Resp: Effort & Inspection: normal respiratory effort, able to speak in complete sentences, no audible wheezes, no cough, no respiratory distress and no retractions Back/Spine/Pelvis: Cervical Spine: normal cervical lordosis, cervical ROM normal, cervical muscular tenderness, cervical spasm, No Cervical spine tenderness and No step off deformity Skin: General skin exam: normal color and no rashes or lesions noted Neuro: General: patient oriented x3 Cranial nerves: Yes Equal, round and reactive pupils present Extrem: Right upper extremity: normal to inspection, full ROM, normal capillary refill, shoulder/upper arm normal ROM; no swelling, no ecchymosis, no crepitus, no deformity and no unusual warmth and elbow/forearm normal to inspection; no tenderness, no swelling, no ecchymosis and no deformity; no cyanosis, no edema and joint enlargement noted Left upper extremity: normal to inspection, full ROM, normal capillary refill, shoulder/upper arm no tenderness, no swelling, no ecchymosis, no deformity and no unsual warmth and elbow/forearm normal ROM; no tenderness, no swelling, no unusual warmth, no ecchymosis and no deformity; no cyanosis, no edema and joint enlargement noted Psych: Appearance: grossly normal Mental Status: mental status grossly normal Speech and movement: Normal speech and movement present Affect: normal affect Course Course Emergency Course: Patient is aware of diagnosis, understands and agrees to treatment plan.? Anticipatory guidance given.? Patient agrees to follow-up as directed and is aware of reasons to seek care at the emergency department. Some parts of this dictation were generated by voice recognition software and may contain typographical and/or grammatical inaccuracies. Level of Care: Express Care Visit Vital Signs Vital signs: Vital Signs Temperature 97.9 F 03/13/24 13:48 Pulse Rate 72 03/13/24 13:48 Respiratory Rate 20 03/13/24 13:48 Blood Pressure 121/78 03/13/24 13:48 Pulse Oximetry 99 03/13/24 13:48 Oxygen Delivery Room Air 03/13/24 13:48 Temperature 97.9 F 03/13/24 13:48 Pulse Rate 72 03/13/24 13:48 Respiratory Rate 20 03/13/24 13:48 Blood Pressure 121/78 03/13/24 13:48 Pulse Oximetry 99 03/13/24 13:48 Oxygen Delivery Room Air 03/13/24 13:48 Reviewed Medical Decision Making MDM Narrative Medical decision making narrative: patient with bilateral shoulder pain that goes into bilateral sides of neck this started after falling 3 weeks ago. Patient states pain is worsening. Discussed option of x-ray patient states does not feel anything is broken and declined x-ray at this time. Will treat as muscular skeletal strain and instructed on close follow-up. Patient resting comfortably without signs or symptoms of acute distress, nontoxic appearing, vital signs stable. patient appropriate for discharge home and outpatient care, with instructions on close monitoring, close follow-up, and when to seek emergency care. Discharge instructions reviewed with patient, as well as provided in writing per nursing staff. The instructions also include specific and strict return/GO TO THE ER as well as f/u information. All questions have been answered, and the patient deny any further questions with discharge and discharge plan. Differential Diagnosis Differential Diagnosis: flushed strain ligament injury, fracture Medical Records Medical records reviewed: Yes I reviewed the external patient's medical records. Vital Signs Vital Signs: Vital Signs Temperature 97.9 F 03/13/24 13:48 Pulse Rate 72 03/13/24 13:48 Respiratory Rate 20 03/13/24 13:48 Blood Pressure 121/78 03/13/24 13:48 Pulse Oximetry 99 03/13/24 13:48 Oxygen Delivery Room Air 03/13/24 13:48 Temperature 97.9 F 03/13/24 13:48 Pulse Rate 72 03/13/24 13:48 Respiratory Rate 20 03/13/24 13:48 Blood Pressure 121/78 03/13/24 13:48 Pulse Oximetry 99 03/13/24 13:48 Oxygen Delivery Room Air 03/13/24 13:48 reviewed Lab Data Lab results reviewed: Yes I reviewed the patient's lab results. Discharge Plan Discharge Clinical Impression: Muscle strain Patient Disposition: Home, Self-Care Condition: Stable Instructions: Muscle Strain (ED) Additional Instructions: Medications as directed. Muscle relaxers can cause drowsiness Heat to the area several times daily Take Tylenol as needed Follow up with your PCP in 7 days or as needed. Go to emergency room for worsening of conditions Patient Language: Tajik Prescriptions: New cyclobenzaprine 10 mg tablet 10 mg PO TID PRN (Reason: muscle spasm) Qty: 14 0RF No Action montelukast [Singulair] 10 mg Tablet 10 mg PO DAILY quetiapine 100 mg tablet 100 mg PO HS Qty: 30 2RF famotidine 40 mg Tablet 40 mg PO BID pravastatin 20 mg Tablet 20 mg PO DAILY albuterol sulfate 90 mcg/actuation HFA aerosol inhaler 90 mcg INHALATION DIRECTED bupropion HCl 150 mg tablet extended release 24 hr 150 mg PO DIRECTED loratadine [Claritin] 10 mg tablet 10 mg PO DAILY Qty: 30 0RF folic acid 1 mg tablet ondansetron 4 mg tablet,disintegrating 4 mg PO Q6H PRN (Reason: nausea and vomiting) Qty: 14 0RF pregabalin 100 mg capsule 100 mg PO BID losartan 100 mg tablet 100 mg PO DAILY omeprazole 20 mg capsule,delayed release(DR/EC) 20 mg PO DAILY Follow-up/Referrals: PHYSICIAN NOT ON STAFF,NONSTAFF [Primary Care Provider] - 1 Week ( [facility] care follow-up) Time of Disposition: 14:05
== END 2024-03-13 14:05 | disposition home or self-care (01) ==
PROVIDERS: Emergency Provider Registered Nurse
DX: S46.912A Strain of unspecified muscle, fascia and tendon at shoulder and upper arm level, left arm, initial encounter (principal); S46.911A Strain of unspecified muscle, fascia and tendon at shoulder and upper arm level, right arm, initial encounter; W19.XXXA Unspecified fall, initial encounter; J45.909 Unspecified asthma, uncomplicated; M79.7 Fibromyalgia; K21.9 Gastro-esophageal reflux disease without esophagitis; E78.00 Pure hypercholesterolemia, unspecified; Z86.16 Personal history of COVID-19; F41.9 Anxiety disorder, unspecified; F32.A Depression, unspecified
CPT/HCPCS: 99213; G0463

== ENCOUNTER 2024-04-23 15:46 | Emergency (ER) | payer OTHER, SELFPAY ==
--- NOTE | 2024-04-23 16:21 | ED.URI ---
HPI - URI/Sore Throat General Chief Complaint: Upper Respiratory Infection Stated Complaint: Sore Throat Time Seen by Provider: 04/23/24 16:21 Source: patient Mode of arrival: ambulatory Limitations: no limitations History of Present Illness HPI Narrative: 48-year-old male presents with complaint of sore throat, fever, headache for 3 days. Patient reports that his [id number] and also his positive for strep throat. Denies nausea vomiting. All systems reviewed and negative except as noted above. Related Data Home Medications Medication Instructions Recorded Confirmed montelukast 10 mg tablet 10 mg PO DAILY 12/23/20 03/13/24 (Singulair) famotidine 40 mg tablet 40 mg PO BID 02/01/21 03/13/24 pravastatin 20 mg tablet 20 mg PO DAILY 02/01/21 03/13/24 pregabalin 100 mg capsule 100 mg PO BID 12/20/21 03/13/24 losartan 100 mg tablet 100 mg PO DAILY 03/23/22 03/13/24 omeprazole 20 mg capsule,delayed 20 mg PO DAILY 03/23/22 03/13/24 release folic acid 1 mg tablet 1 mg PO DAILY 12/04/23 03/13/24 bupropion HCl 150 mg 24 hr tablet, 150 mg PO DAILY 03/13/24 03/13/24 extended release quetiapine 50 mg tablet 50 mg PO HS 03/13/24 03/13/24 Allergies Allergy/AdvReac Type Severity Reaction Status Date / Time aspirin Allergy Intermediate Swelling Verified 03/13/24 14:20 of Lip/Tongue/Throat gabapentin Allergy Intermediate Swelling Verified 03/13/24 14:20 amoxicillin Allergy Mild Rash Verified 03/13/24 14:20 tomato Allergy Ulcers Verified 03/13/24 14:20 Review of Systems Review of Systems: CONSTITUTIONAL: Reports fatigue, fever, chills, or sweats. EYES: Denies visual changes, redness, or discharge. ENT: Denies rhinorrhea, congestion. Reports sore throat. Denies otalgia. CARDIOVASCULAR: Denies chest pain, palpitations, or edema. RESPIRATORY: Denies cough or dyspnea. GASTROINTESTINAL: Denies abdominal pain, nausea, vomiting, or diarrhea. GENITOURINARY: Denies dysuria or hematuria. SKIN: Denies rash or itching. MUSCULOSKELETAL: Denies back pain, joint pain, or myalgia. NEUROLOGIC: Reports headache. Denies numbness, or weakness. PSYCHIATRIC: Denies anxiety or depression. All other systems reviewed are negative, except as documented in HPI. [facility] Past Medical History Medical History Ankle fracture bilateral Anxiety and depression Asthma Bipolar 1 disorder COVID-19 may Fibromyalgia GERD (gastroesophageal reflux disease) History of dental problems Hypercholesterolemia Hypertension IBS (irritable bowel syndrome) Wrist fracture bilateral Surgical History Surgical History Hx of brain surgery trauma as child Hx of elbow surgery bilateral Social History Social History Smoking status: Never smoker Alcohol intake: unknown Substance use type: does not use Living arrangements: with family Gender identity (if verbalized by the patient): Male Comments At time of signature, agree with nursing past medical, surgical, social and family history. There is no relevant family history pertinent to the presenting complaint. Exam Narrative: GENERAL: This is a well-nourished, well-developed patient, in no apparent distress. HEAD: normocephalic, atraumatic. EYES: PERRL. Sclera clear/white. Vision is grossly intact. EARS: External ears normal, auditory canals clear and without drainage, TMs normal without perforation. Hearing grossly intact. NOSE: External nose normal with no obvious nasal discharge, nares without redness, no rhinorrhea. THROAT: Mucous membranes moist, mild erythema to cyst with mild swelling. No exudates. NECK: Neck supple, non-tender without lymphadenopathy, masses or thyromegaly. CARDIOVASCULAR: Regular rate and rhythm without murmurs, gallops, or rubs. RESPIRATORY: Clear to auscultation. Breath bridgette
== END 2024-04-23 16:33 | disposition home or self-care (01) ==
PROVIDERS: Emergency Provider Nurse Practitioner Family
DX: J02.9 Acute pharyngitis, unspecified (principal); Z20.818 Contact with and (suspected) exposure to other bacterial communicable diseases; J45.909 Unspecified asthma, uncomplicated; M79.7 Fibromyalgia; K21.9 Gastro-esophageal reflux disease without esophagitis; E78.00 Pure hypercholesterolemia, unspecified; I10 Essential (primary) hypertension; Z86.16 Personal history of COVID-19; F41.9 Anxiety disorder, unspecified; F31.9 Bipolar disorder, unspecified
CPT/HCPCS: 87081; 87880; 99213; G0463

== ENCOUNTER 2024-06-06 13:04 | Emergency (ER) | payer OTHER, SELFPAY ==
[2024-06-06 13:14] VITALS: BP 122/68; PULSE 72; RESP 16; TEMP 36.8; O2SAT 98
--- NOTE | 2024-06-06 13:23 | ED.BACK ---
HPI - Back Pain/Injury General Chief Complaint: Back Pain/Injury Stated Complaint: back pain History of Present Illness HPI Narrative: Patient presents with lower back strain after carrying his dog. Patient denies any numbness or tingling no radiation of pain. Patient also reports left foot pain from an injury 1 month ago. No open areas noted no bruising no deformity noted. Patient is not taking anything for pain or discomfort at this time. Related Data Home Medications Medication Instructions Recorded Confirmed montelukast 10 mg tablet 10 mg PO DAILY 12/23/20 06/06/24 (Singulair) famotidine 40 mg tablet 40 mg PO BID 02/01/21 06/06/24 pravastatin 20 mg tablet 20 mg PO DAILY 02/01/21 06/06/24 pregabalin 100 mg capsule 100 mg PO BID 12/20/21 06/06/24 losartan 100 mg tablet 100 mg PO DAILY 03/23/22 06/06/24 omeprazole 20 mg capsule,delayed 20 mg PO DAILY 03/23/22 06/06/24 release folic acid 1 mg tablet 1 mg PO DAILY 12/04/23 06/06/24 bupropion HCl 150 mg 24 hr tablet, 150 mg PO DAILY 03/13/24 06/06/24 extended release quetiapine 50 mg tablet 50 mg PO HS 03/13/24 06/06/24 Allergies Allergy/AdvReac Type Severity Reaction Status Date / Time aspirin Allergy Intermediate Swelling Verified 06/06/24 13:27 of Lip/Tongue/Throat gabapentin Allergy Intermediate Swelling Verified 06/06/24 13:27 amoxicillin Allergy Mild Rash Verified 06/06/24 13:27 tomato Allergy Ulcers Verified 06/06/24 13:27 Review of Systems Review of Systems: GENERAL: Well-appearing, well-nourished, and in no acute distress. HEAD: Normocephalic, atraumatic. EYES: PERRLA and EOMI. ENT: Nares clear, no rhinorrhea or epistaxis. Mucous membranes moist. NECK: Supple. CHEST: Clear to auscultation. No respiratory distress. HEART: Regular rate and rhythm. No murmur heard. Normal peripheral pulses. ABDOMEN: Soft, nontender, nondistended, normal active bowel sounds. EXTREMITIES: Normal range of motion. No edema. Foot exam ANKLE EXAM SKIN INTACT. NORMAL DP PULSE, NORMAL CAP REFILL. NORMAL SENSATION. Back exam normal back exam [place]. NO CURVATURE APPARENT. NO VERTEBRAL POINT SPECIFIC TENDERNESS. NO DEFORMITY. NO STEP-OFFS. NORMAL LE STRENGTH BILATERALLY. NORMAL LE SENSATION BILATERALLY. ABLE TO WALK ON TOES AND HEELS WITH NORMAL DORSIFLEXION AND PLANTAR FLEXION STRENGTH. NO WEAKNESS OBSERVED WITH GAIT. LEFT PARASPINAL MUSCLE TENDERNESS FLEXION STRENGTH. NO WEAKNESS OBSERVED WITH GAIT. LEFT PARASPINAL MUSCLE TENDERNESS. LEFT SI JOINT TENDERNESS. FLEXION AND EXTENSION ROM NORMAL, ONLY SLIGHT LIMITATION. NKLE EXAM SKIN INTACT. NORMAL DP PULSE, NORMAL CAP REFILL. NORMAL SENSATION. SKIN: Warm, dry, no rash. NEURO: No focal deficits. Alert and oriented x3. [place] Coma Scale Eye Opening: Spontaneous 4 [place] Coma Scale Motor: Obeys Commands 6 [place] Coma Scale Verbal: Oriented 5 [place] Coma Scale Total 15 [facility] Past Medical History Medical History Ankle fracture bilateral Anxiety and depression Asthma Bipolar 1 disorder COVID-19 may Fibromyalgia GERD (gastroesophageal reflux disease) History of dental problems Hypercholesterolemia Hypertension IBS (irritable bowel syndrome) Wrist fracture bilateral Surgical History Surgical History Hx of brain surgery trauma as child Hx of elbow surgery bilateral Social History Social History Smoking status: Never smoker Alcohol intake: unknown Substance use type: does not use Living arrangements: with family Gender identity (if verbalized by the patient): Male Course Course Level of Care: Express Care Visit Vital Signs Vital signs: Vital Signs Temperature 36.8 C 06/06/24 13:14 Pulse Rate 72 06/06/24 13:14 Respiratory Rate 16 06/06/24 13:14 Blood Pressure 122/68
== END 2024-06-06 14:15 | disposition home or self-care (01) ==
PROVIDERS: Emergency Provider Nurse Practitioner Family
DX: S39.012A Strain of muscle, fascia and tendon of lower back, initial encounter (principal); X50.0XXA Overexertion from strenuous movement or load, initial encounter; S90.32XA Contusion of left foot, initial encounter; X58.XXXA Exposure to other specified factors, initial encounter; J45.909 Unspecified asthma, uncomplicated; M79.7 Fibromyalgia; K21.9 Gastro-esophageal reflux disease without esophagitis; E78.00 Pure hypercholesterolemia, unspecified; I10 Essential (primary) hypertension; F41.9 Anxiety disorder, unspecified; F31.9 Bipolar disorder, unspecified
CPT/HCPCS: 73630; 99213; G0463

== ENCOUNTER 2024-08-18 09:49 | Emergency (ER) | payer OTHER, SELFPAY ==
--- NOTE | ~2024-08-18 | XR_ITS ---
XR foot RT min 3V Ordering provider: Adina Verdin APRN History: . STUBBING INJURY TO 2/3/4 DIGITS, GEN BRUISING PAIN . Comparison: None. c FINDINGS: BONES: No acute fracture or dislocation. 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 Cystic changes in the distal first metatarsal bone suggestive of degenerative change s. No tarsal coalition. SOFT TISSUES: Normal. IMPRESSION: No acute osseous abnormality of the right foot. Reviewed, dictated and finalized at location A.
[2024-08-18 09:55] VITALS: BP 126/68; PULSE 68; RESP 16; TEMP 36.3; O2SAT 100
--- NOTE | 2024-08-18 10:18 | ED.LOWEXIN ---
HPI - Extremity Injury (Lower) General Chief Complaint: Extremity Injury, Lower Stated Complaint: right foot toe injury Time Seen by Provider: 08/18/24 10:19 Source: patient Mode of arrival: ambulatory Limitations: no limitations History of Present Illness HPI Narrative: 48 y/o male Presented for complaint of right 2nd toe pain and bruising after injury today at 3:00 a.m. States he was playing with his dog when he struck the foot on the stairs and heard a cracking sound. He states he has fibromyalgia and has high pain tolerance, rates pain 2/10. Took Tylenol about an hour after the injury. Pain is worse with ambulation. Eyes deformity. Related Data Home Medications Medication Instructions Recorded Confirmed montelukast 10 mg tablet 10 mg PO DAILY 12/23/20 08/18/24 (Singulair) famotidine 40 mg tablet 40 mg PO BID 02/01/21 08/18/24 pravastatin 20 mg tablet 20 mg PO DAILY 02/01/21 08/18/24 losartan 100 mg tablet 100 mg PO DAILY 03/23/22 08/18/24 omeprazole 20 mg capsule,delayed 20 mg PO DAILY 03/23/22 08/18/24 release folic acid 1 mg tablet 1 mg PO DAILY 12/04/23 08/18/24 bupropion HCl 150 mg 24 hr tablet, 150 mg PO DAILY 03/13/24 08/18/24 extended release quetiapine 50 mg tablet 50 mg PO HS 03/13/24 08/18/24 chlorthalidone 25 mg tablet 25 mg PO DAILY 08/18/24 08/18/24 Allergies Allergy/AdvReac Type Severity Reaction Status Date / Time aspirin Allergy Intermediate Swelling Verified 08/18/24 10:02 of Lip/Tongue/Throat gabapentin Allergy Intermediate Swelling Verified 08/18/24 10:02 amoxicillin Allergy Mild Rash Verified 08/18/24 10:02 tomato Allergy Ulcers Verified 08/18/24 10:02 Review of Systems Review of Systems: CONSTITUTIONAL: Denies body aches, fever, chills CARDIOVASCULAR: Denies chest pain, palpitations, or edema. RESPIRATORY: Denies cough or dyspnea. SKIN: Denies rash, itching, or wounds. MUSCULOSKELETAL: Reports right toe pain NEUROLOGIC: Denies headache, numbness, tingling, or weakness. All systems reviewed & are unremarkable except as noted in HPI and below PMFSH Past Medical History Medical History Ankle fracture bilateral Anxiety and depression Asthma Bipolar 1 disorder COVID-19 may Fibromyalgia GERD (gastroesophageal reflux disease) History of dental problems Hypercholesterolemia Hypertension IBS (irritable bowel syndrome) Wrist fracture bilateral Surgical History Surgical History Hx of brain surgery trauma as child Hx of elbow surgery bilateral Social History Social History Smoking status: Never smoker Alcohol intake: unknown Substance use type: does not use Living arrangements: with family Gender identity (if verbalized by the patient): Male Comments At time of signature, I have reviewed and agree with nursing past medical, surgical, social and family history unless otherwise noted. Please see nursing chart for further information. There is no relevant family history pertinent to the presenting complaint Exam Narrative: GENERAL: Well-appearing CHEST: Speaks in full sentences. No respiratory distress. HEART: Regular rate and rhythm. Normal and equal peripheral pulses. EXTREMITIES: right foot has normal strength and sensation, slightly limited range of motion right 2nd toe due to pain with movement. mild swelling and moderate ecchymosis, with point tenderness to 2nd digit. No open wounds, or obvious deformity; alignment normal, pulse palpable and equal bilaterally, skin warm, dry, pink. Capillary refill less than 3 seconds. SKIN: Warm, dry NEURO: Alert and oriented x3. PSYCH: Normal mood and affect Course Course Emergency Course: Patient is aware of diagnosis, understands and agrees to treatment plan. Anticipatory guidance given. Patient agrees to
== END 2024-08-18 10:40 | disposition home or self-care (01) ==
PROVIDERS: Emergency Provider Nurse Practitioner Family
DX: S93.504A Unspecified sprain of right lesser toe(s), initial encounter (principal); W22.09XA Striking against other stationary object, initial encounter; M79.7 Fibromyalgia; J45.909 Unspecified asthma, uncomplicated; K21.9 Gastro-esophageal reflux disease without esophagitis; E78.00 Pure hypercholesterolemia, unspecified; I10 Essential (primary) hypertension; F41.9 Anxiety disorder, unspecified; F31.9 Bipolar disorder, unspecified; Z86.16 Personal history of COVID-19
CPT/HCPCS: 73630; 99213; G0463

== ENCOUNTER 2024-08-26 12:03 | Emergency (ER) | payer OTHER, SELFPAY ==
--- NOTE | ~2024-08-26 | XR_ITS ---
XR abdomen/kub 1V Ordering provider: Jeanette Beckett NP History: . questionable stone . Comparison: None. FINDINGS: BOWEL: Nonobstructive bowel gas pattern. ORGANOMEGALY: None. SIGNIFICANT PATHOLOGIC CALCIFICATIONS: None. OTHER: No free air is seen under the diaphragm. IMPRESSION: NO ACUTE ABDOMINAL FINDINGS. Reviewed, dictated and finalized at location A.
[2024-08-26 12:35] VITALS: BP 109/66; PULSE 67; RESP 18; TEMP 36.6; O2SAT 98
--- NOTE | 2024-08-26 13:06 | ED.MALEGU ---
HPI - Male Genitourinary General Chief complaint: Urogenital-Male Stated complaint: Poss Uti/lower back pain Time Seen by Provider: 08/26/24 13:23 Source: patient, RN notes reviewed and old records reviewed Mode of arrival: ambulatory Limitations: no limitations History of Present Illness HPI Narrative: 48 year old male who presents to [facility] care with complaints of lower back pain, random vomiting, and some dark urine noted with some burning with urination for the past 3 days. Patient verbalizes no abdominal pain or any incidence of diarrhea and has not had any fevers. Patient denies any concern for STD exposure denies any testicle pain or any rectal pressure. MD Complaint: other (nausea vomiting and lower back pain with burning with urination) Onset (ago): day(s) (3) Duration: intermittent Severity scale (1-10): 4 Quality: aching Related Data Home Medications Medication Instructions Recorded Confirmed montelukast 10 mg tablet 10 mg PO DAILY 12/23/20 08/26/24 (Singulair) famotidine 40 mg tablet 40 mg PO BID 02/01/21 08/26/24 pravastatin 20 mg tablet 20 mg PO DAILY 02/01/21 08/26/24 losartan 100 mg tablet 100 mg PO DAILY 03/23/22 08/26/24 omeprazole 20 mg capsule,delayed 20 mg PO DAILY 03/23/22 08/26/24 release folic acid 1 mg tablet 1 mg PO DAILY 12/04/23 08/26/24 bupropion HCl 150 mg 24 hr tablet, 150 mg PO DAILY 03/13/24 08/26/24 extended release chlorthalidone 25 mg tablet 25 mg PO DAILY 08/18/24 08/26/24 Allergies Allergy/AdvReac Type Severity Reaction Status Date / Time aspirin Allergy Intermediate Swelling Verified 08/26/24 13:12 of Lip/Tongue/Throat gabapentin Allergy Intermediate Swelling Verified 08/26/24 13:12 amoxicillin Allergy Mild Rash Verified 08/26/24 13:12 tomato Allergy Ulcers Verified 08/26/24 13:12 Review of Systems Review of Systems: CONSTITUTIONAL: Denies fever, chills, or sweats. CARDIOVASCULAR: Denies chest pain, palpitations, or edema. RESPIRATORY: Denies cough or dyspnea. GASTROINTESTINAL: Denies abdominal pain positive for nausea, vomiting, no diarrhea. GENITOURINARY: Reports dysuria, no frequency, urgency. Denies flank pain or hematuria. SKIN: Denies rash or itching. MUSCULOSKELETAL: Reports lower back pain or myalgia. Denies CVA tenderness NEUROLOGIC: Denies headache All systems reviewed & are unremarkable except as noted in HPI and below PMFSH Past Medical History Medical History Ankle fracture bilateral Anxiety and depression Asthma Bipolar 1 disorder COVID-19 may Fibromyalgia GERD (gastroesophageal reflux disease) History of dental problems Hypercholesterolemia Hypertension IBS (irritable bowel syndrome) Wrist fracture bilateral Surgical History Surgical History Hx of brain surgery trauma as child Hx of elbow surgery bilateral Social History Social History Smoking status: Never smoker Alcohol intake: unknown Substance use type: does not use Living arrangements: with family Gender identity (if verbalized by the patient): Male Comments At time of signature, agree with nursing past medical, surgical, social and family history. There is no relevant family history pertinent to the presenting complaint Exam Narrative: GENERAL: Well-appearing, well-nourished, and in no acute distress. HEAD: Normocephalic, atraumatic. NECK: Supple.no lymphadenopathy CHEST: Clear to auscultation. No respiratory distress.SAO2 98% on room air HEART: Regular rate and rhythm. No murmur heard. Normal peripheral pulses. ABDOMEN: Soft, nontender, nondistended, normal active bowel sounds. No CVA tenderness reports low back pain EXTREMITIES: Normal range of motion. No edema. SKIN: Warm, dry, no rash. NEURO: No focal deficits. Alert and oriented x3. Course Course Emergency C
[2024-08-26 14:04] LABS: EDUAAPPEAR Cloudy; EDUABILI Negative (Negative); EDUABLOOD Trace (Negative); EDUACOLOR1 Yellow; EDUAGLUCOSE Negative (Negative); EDUAKETONE Negative (Negative); EDUALEUKO Negative (Negative); EDUANITRATE Negative (Negative); EDUAPROTEIN Negative (Negative); EDUAUROBILI 0.2
== END 2024-08-26 14:56 | disposition home or self-care (01) ==
PROVIDERS: Emergency Provider Registered Nurse
DX: M54.50 Low back pain, unspecified (principal); R30.0 Dysuria; F41.8 Other specified anxiety disorders; J45.909 Unspecified asthma, uncomplicated; I10 Essential (primary) hypertension; K21.9 Gastro-esophageal reflux disease without esophagitis; E78.00 Pure hypercholesterolemia, unspecified; F31.9 Bipolar disorder, unspecified
CPT/HCPCS: 74018; 81003; 87086; 99213; G0463

== ENCOUNTER 2024-09-18 13:24 | Emergency (ER) | payer OTHER, SELFPAY ==
[2024-09-18 13:29] VITALS: BP 106/65; PULSE 65; RESP 20; TEMP 36.6; O2SAT 98
--- NOTE | 2024-09-18 14:47 | ED_ITS ---
HPI - Ear Problem General Chief complaint: Ear Stated complaint: Ear Pain/Dizziness Time Seen by Provider: 09/18/24 14:20 Source: patient, RN notes reviewed and old records reviewed Mode of arrival: ambulatory Limitations: no limitations History of Present Illness HPI Narrative: 48 year old male who presents to [facility] care accompanied by with complaints of left ear pain for the past 4 days with some intermittent episodes of dizziness voiced today. Patient reports that he has not had any fevers, chills or sweats, denies any cough or any sore throat. Patient reports that he has not experienced any nausea or any diarrhea or vomiting. He states that left ear has dull achy feeling for which he has been taking some Ibuprofen. Patient reports history of sinus problems and does take daily Singulair and also uses Nasacort nasal spray daily. MD Complaint: ear pain and other (dizziness today) Location: left ear Duration: constant Severity: moderate Discharge from ear: Reports no Treatment prior to arrival: other (Ibuprofen) Related Data Home Medications Medication Instructions Recorded Confirmed montelukast 10 mg tablet 10 mg PO DAILY 12/23/20 09/18/24 (Singulair) pravastatin 20 mg tablet 20 mg PO DAILY 02/01/21 09/18/24 losartan 100 mg tablet 100 mg PO DAILY 03/23/22 09/18/24 folic acid 1 mg tablet 1 mg PO DAILY 12/04/23 09/18/24 bupropion HCl 150 mg 24 hr tablet, 150 mg PO DAILY 03/13/24 09/18/24 extended release chlorthalidone 25 mg tablet 25 mg PO DAILY 08/18/24 09/18/24 Allergies Allergy/AdvReac Type Severity Reaction Status Date / Time aspirin Allergy Intermediate Swelling Verified 09/18/24 13:40 of Lip/Tongue/Throat gabapentin Allergy Intermediate Swelling Verified 09/18/24 13:40 amoxicillin Allergy Mild Rash Verified 09/18/24 13:40 tomato Allergy Mild Ulcers Verified 09/18/24 13:40 Review of Systems Review of Systems: CONSTITUTIONAL: Denies malaise, chills, sweats, or fever. EYES: Denies visual changes, redness, or discharge. ENT: Reports rhinorrhea, congestion, sinus pressure, positive for left otalgia and no sore throat. CARDIOVASCULAR: Denies chest pain, palpitations, or edema. RESPIRATORY: Reports no cough.? Denies dyspnea. GASTROINTESTINAL: Denies abdominal pain, nausea, vomiting, diarrhea SKIN: Denies rash or itching. MUSCULOSKELETAL: Denies myalgia. NEUROLOGIC: Denies headache. reports some dizziness today All systems reviewed & are unremarkable except as noted in HPI and below PMFSH Past Medical History Medical History Ankle fracture bilateral Anxiety and depression Asthma Bipolar 1 disorder COVID-19 may Fibromyalgia GERD (gastroesophageal reflux disease) History of dental problems Hypercholesterolemia Hypertension IBS (irritable bowel syndrome) Wrist fracture bilateral Surgical History Surgical History Hx of brain surgery trauma as child Hx of elbow surgery bilateral Social History Social History Smoking status: Never smoker Alcohol intake: unknown Substance use type: does not use Living arrangements: with family Gender identity (if verbalized by the patient): Male Comments At time of signature, agree with nursing past medical, surgical, social and family history. There is no relevant family history pertinent to the presenting complaint Exam Narrative: GENERAL: Well-appearing, well-nourished, and in no acute distress. HEAD: Normocephalic EYES: PERRLA, conjunctivae clear ENT: Nares clear, turbinates edematous and erythematous, clear discharge. Mucous membranes moist. TM pearly mallory with dull light reflex bilaterally; no tragal tenderness. Oropharynx erythematous without lesions. Tonsils not enlarged and without exudate, no drooling, no hoarseness, no trismus, uvula midline. NECK: Supple. No lymphadenopathy CHEST: Clear to auscultation, breath sounds equal. No wheezing, rhonchi, rales, or stridor. No respiratory distress, speaks in full sentences.no cough noted SAO2 98% on room air HEART: Regular rate and rhythm. No murmur heard. SKIN: Warm, dry, no rash. NEURO: Alert and oriented x3. reports some dizziness today not associated with nausea, cranial nerves II-XII intact without deficit, gait steady PSYCH: Normal mood and affect Course Course Emergency Course: Patient is aware of diagnosis, understands and agrees to treatment plan.? Anticipatory guidance given.? Patient agrees to follow-up as directed and is aware of reasons to seek care at the emergency department. Portions of this record may have been created with voice recognition software Level of Care: Express Care Visit Vital Signs Vital signs: Vital Signs Temperature 36.6 C 09/18/24 13:29 Pulse Rate 65 09/18/24 13:29 Respiratory Rate 20 09/18/24 13:29 Blood Pressure 106/65 09/18/24 13:29 Pulse Oximetry 98 09/18/24 13:29 Oxygen Delivery Room Air 09/18/24 13:29 Temperature 36.6 C 09/18/24 13:29 Pulse Rate 65 09/18/24 13:29 Respiratory Rate 20 09/18/24 13:29 Blood Pressure 106/65 09/18/24 13:29 Pulse Oximetry 98 09/18/24 13:29 Oxygen Delivery Room Air 09/18/24 13:29 Reviewed Medical Decision Making Differential Diagnosis Differential Diagnosis: URI, otitis media, otitis externa, eustachian tube dysfunction, sinus janel estion, sinusitis, dizziness. Medical Records Medical records reviewed: Yes I reviewed the external patient's medical records. Vital Signs Vital Signs: Vital Signs Temperature 36.6 C 09/18/24 13:29 Pulse Rate 65 09/18/24 13:29 Respiratory Rate 20 09/18/24 13:29 Blood Pressure 106/65 09/18/24 13:29 Pulse Oximetry 98 09/18/24 13:29 Oxygen Delivery Room Air 09/18/24 13:29 Temperature 36.6 C 09/18/24 13:29 Pulse Rate 65 09/18/24 13:29 Respiratory Rate 20 09/18/24 13:29 Blood Pressure 106/65 09/18/24 13:29 Pulse Oximetry 98 09/18/24 13:29 Oxygen Delivery Room Air 09/18/24 13:29 Critical Care Time Critical Care Time Critical Care Time: No Discharge Plan Discharge Clinical Impression: Dizziness, Ear pain, left Patient Disposition: Home, Self-Care Condition: Stable Instructions: Antibiotic Form, Earache (ED), Dizziness (ED) Additional Instructions: Increase fluids especially juices and water [id number] cough and cold medicine of your choice for your symptoms Zyrtec Claritin or Beth daily include Coricidin brand decongestant Steroids as directed--take with food heat to the face 20-30 minutes 4-6 times a day for pain Salt water gargles, throat lozenges or throat sprays as desired If your symptoms persist, change or worsen significantly before you can contact your personal physician then please, without delay, go to the emergency department for further evaluation. Follow-up with PCP in 7-10 days or sooner if needed Prescriptions: New Coricidin HBP Cough and Cold 4-30 mg tablet 1 tablet PO Q6H PRN (Reason: cough) Qty: 30 0RF methylprednisolone [Medrol (Manuel)] 4 mg tablets,dose pack See Rx Instructions .ROUTE .COMPLEX Qty: 21 0RF Rx Instructions: orally per package directions No Action montelukast [Singulair] 10 mg Tablet 10 mg PO DAILY pravastatin 20 mg Tablet 20 mg PO DAILY folic acid 1 mg tablet 1 mg PO DAILY bupropion HCl 150 mg tablet extended release 24 hr 150 mg PO DAILY chlorthalidone 25 mg tablet 25 mg PO DAILY losartan 100 mg tablet 100 mg PO DAILY Follow-up/Referrals: PHYSICIAN NOT ON STAFF,NONSTAFF [Primary Care Provider] - Time of Disposition: 14:57 Quality [place] Coma Scale Eyes: Open Verbal: Oriented and Alert Motor: Follows Commands [place] Coma Total Score: 15
== END 2024-09-18 15:00 | disposition home or self-care (01) ==
PROVIDERS: Emergency Provider Registered Nurse
DX: R42 Dizziness and giddiness (principal); H92.02 Otalgia, left ear; I10 Essential (primary) hypertension; Z79.899 Other long term (current) drug therapy
CPT/HCPCS: 99213; G0463

== ENCOUNTER 2024-10-29 09:23 | Emergency (ER) | payer OTHER, SELFPAY ==
[2024-10-29 09:26] VITALS: BP 108/64; PULSE 70; RESP 16; TEMP 36.6; O2SAT 97
[2024-10-29 09:31] VITALS: BP 108/64; PULSE 70; RESP 16; TEMP 36.6; O2SAT 97
--- NOTE | 2024-10-29 09:39 | ED_ITS ---
HPI - Dental/Oral General Chief complaint: Dental/Oral Stated complaint: abcess tooth Time Seen by Provider: 10/29/24 09:35 Mode of arrival: ambulatory Limitations: no limitations History of Present Illness HPI Narrative: 49-year-old male presents with concern for left upper dental pain. Reports pain started overnight. Reports he has a broken tooth in that area.. Reports swelling. Denies fever MD Complaint: tooth pain Related Data Home Medications Medication Instructions Recorded Confirmed montelukast 10 mg tablet 10 mg PO DAILY 12/23/20 10/29/24 (Singulair) pravastatin 20 mg tablet 20 mg PO DAILY 02/01/21 10/29/24 losartan 100 mg tablet 100 mg PO DAILY 03/23/22 10/29/24 folic acid 1 mg tablet 1 mg PO DAILY 12/04/23 10/29/24 bupropion HCl 150 mg 24 hr tablet, 150 mg PO DAILY 03/13/24 10/29/24 extended release chlorthalidone 25 mg tablet 25 mg PO DAILY 08/18/24 10/29/24 Allergies Allergy/AdvReac Type Severity Reaction Status Date / Time aspirin Allergy Intermediate Swelling Verified 10/29/24 09:30 of Lip/Tongue/Throat gabapentin Allergy Intermediate Swelling Verified 10/29/24 09:30 amoxicillin Allergy Mild Rash Verified 10/29/24 09:30 tomato Allergy Mild Ulcers Verified 10/29/24 09:30 Review of Systems Review of Systems: CONSTITUTIONAL: Denies malaise, chills, sweats, or fever. EYES: Denies visual changes ENT: Denies rhinorrhea, congestion, sinus pain, otalgia or sore throat. Reports left upper dental pain CARDIOVASCULAR: Denies chest pain, palpitations RESPIRATORY: Denies cough or dyspnea. SKIN: Denies rash or itching. MUSCULOSKELETAL: Denies myalgia. NEUROLOGIC: Denies numbness, weakness, or headache. All systems reviewed & are unremarkable except as noted in HPI and below PMFSH Past Medical History Medical History Ankle fracture bilateral Anxiety and depression Asthma Bipolar 1 disorder COVID-19 may Fibromyalgia GERD (gastroesophageal reflux disease) History of dental problems Hypercholesterolemia Hypertension IBS (irritable bowel syndrome) Wrist fracture bilateral Surgical History Surgical History Hx of brain surgery trauma as child Hx of elbow surgery bilateral Social History Social History Smoking status: Never smoker Alcohol intake: unknown Substance use type: does not use Living arrangements: with family Gender identity (if verbalized by the patient): Male Comments At time of signature, agree with nursing past medical, surgical, social and family history. There is no relevant family history pertinent to the presenting complaint Exam Narrative: GENERAL: Well-appearing, well-nourished, and in no acute distress. HEAD: Normocephalic, atraumatic. EYES: PERRLA, sclera clear ENT: Nares clear, turbinates pink, no rhinorrhea or epistaxis. Mucous membranes moist. TM pearly mallory with sharp light reflex bilaterally; no tragal tenderness. Oropharynx without erythema or lesions. Tonsils not enlarged and without ex udate. Missing teeth, broken teeth, caries NECK: Supple. No lymphadenopathy. CHEST: No respiratory distress. Speaks in full sentences. HEART: Regular rate and rhythm. SKIN: Warm, dry, no visible rash. NEURO: Alert and oriented x3. PSYCH: Normal mood and affect Course Course Emergency Course: Patient is aware of diagnosis, understands and agrees to treatment plan. Anticipatory guidance given. Patient agrees to follow-up as directed and is aware of reasons to seek care at the emergency department. Portions of this record may have been created with voice recognition software Level of Care: Express Care Visit Vital Signs Vital signs: Vital Signs Temperature 97.8 F 10/29/24 09:26 Pulse Rate 70 10/29/24 09:26 Respiratory Rate 16 10/29/24 09:26 Blood Pressure 108/64 10/29/24 09:26 Pulse Oximetry 97 10/29/24 09:26 Oxygen Delivery Room Air 10/29/24 09:26 Temperature 97.8 F 10/29/24 09:31 Pulse Rate 70 10/29/24 09:31 Respiratory Rate 16 10/29/24 09:31 Blood Pressure 108/64 10/29/24 09:31 Pulse Oximetry 97 10/29/24 09:31 Oxygen Delivery Room Air 10/29/24 09:31 Reviewed. MDM - Dental/Oral MDM Narrative Medical decision making narrative: I evaluated this in the express care. History is obtained from patient who is an independent historian and physical exam was performed.? Available medical records were reviewed. ? Exam findings and relevant testing show no acute concerns or changes; patient is non-toxic appearing and is in no distress. Patients pain and complaint coupled with physical findings are consistant with dentalgia. There are no focal signs of space occupying lesions that are compromising to the airway; no dysphagia, odynophagia, dysphonia, or dyspnea. No uvular deviation or soft palate edema. Patient is non-toxic appearing. The floor of the mouth is soft with no signs of Akbar's Angina; no induration below mandible, no neck pain. Patient is without trismus or drooling and able to swallow secretions. Patient is felt appropriate for discharge home with dental follow up. ? Differential diagnosis and treatment plan were discussed with the patient. Patient agrees with discussion and after shared medical decision making agrees with plan of care. All questions were answered to the patient's satisfaction. Patient is appropriate for outpatient treatment and follow-up. Differential Diagnosis Differential diagnosis: Likely gingival abscess, dental caries, toothache, dental abscess, fracture of tooth and aphthous ulcer Critical Care Time Critical Care Time Critical Care Time: No Discharge Plan Discharge Clinical Impression: Toothache Patient Disposition: Home, Self-Care Condition: Stable Instructions: Antibiotic Form, Toothache (ED) Additional Instructions: Take antibiotic as directed Avoid temperature extremes May apply heat or ice to the face Gentle brushing and flossing Take 2 extra strength Tylenol, 4 ibuprofen, 80 mg of caffeine at same time. You can do this every 6 hours. Do not do this for more than 2 - 3 days. You can substitute 25 mg Benadryl at nighttime for caffeine to help you sleep. Do this for no more than 3 days. Follow-up with the dentist as soon as possible - see the list provided Prescriptions: New clindamycin HCl 300 mg capsule 300 mg PO Q8H 7 Days Qty: 21 0RF No Action montelukast [Singulair] 10 mg Tablet 10 mg PO DAILY pravastatin 20 mg Tablet 20 mg PO DAILY folic acid 1 mg tablet 1 mg PO DAILY bupropion HCl 150 mg tablet extended release 24 hr 150 mg PO DAILY chlorthalidone 25 mg tablet 25 mg PO DAILY losartan 100 mg tablet 100 mg PO DAILY Coricidin HBP Cough and Cold 4-30 mg tablet 1 tablet PO Q6H PRN (Reason: cough) Qty: 30 0RF Follow-up/Referrals: PHYSICIAN NOT ON STAFF,NONSTAFF [Primary Care Provider] - Stand Alone Forms: Work/School Release IP Time of Disposition: 09:48
== END 2024-10-29 09:53 | disposition home or self-care (01) ==
PROVIDERS: Emergency Provider Nurse Practitioner
DX: K08.89 Other specified disorders of teeth and supporting structures (principal); I10 Essential (primary) hypertension; Z79.899 Other long term (current) drug therapy
CPT/HCPCS: 99213; G0463

== ENCOUNTER 2025-01-29 12:22 | Emergency (ER) | payer OTHER, SELFPAY ==
--- OUTSIDE RECORDS SUMMARY | 2025-01-29 12:25 | XMS_ITS | Referral Summary ---
Author Organization [facility] Address [address] [place] [address] Care Team Providers Care Fermentation Operator Name Role Phone Ayden Chopra MD Primary Care Provider [phone] Tono Kumar REPORT CLERK Unavailable [phone] Allergies Active Allergy Reactions Criticality Noted Date Comments Acetaminophen-Codeine Other (See comments) Low 12/2020 Caused hearing issues Aspirin Anaphylaxis High 08/31/2020 Gabapentin Swelling Medium 05/11/2021 Ibuprofen Other (See comments) Low 06/11/2018 Causing increased GI bleeding. Medications montelukast (SINGULAIR) 10 mg tablet Take 1 tablet (10 mg total) by mouth nightly 0 Active buPROPion XL (WELLBUTRIN XL) 150 mg 24 hr tablet Take 1 tablet (150 mg total) by mouth daily 2 Active meloxicam (MOBIC) 15 mg tablet Take 1 tablet (15 mg total) by mouth daily 3 Active albuterol HFA (PROVENTIL HFA,VENTOLIN HFA,PROAIR HFA) 90 mcg/actuation inhaler Inhale 2 puffs every 6 (six) hours as needed 2 Active fluticasone propionate (FLONASE) 50 mcg/actuation nasal spray Administer 50 sprays into each nostril as needed 2 Active folic acid (FOLVITE) 1 mg tablet Take 1 tablet (1,000 mcg total) by mouth daily 2 Active loratadine (CLARITIN) 10 mg tablet Take 1 tablet (10 mg total) by mouth daily 2 Active losartan (COZAAR) 100 mg tablet Take 1 tablet (100 mg total) by mouth daily 2 Active omeprazole (PriLOSEC) 20 mg capsule Take 1 capsule (20 mg total) by mouth daily 3 Active pravastatin (PRAVACHOL) 20 mg tablet Take 1 tablet (20 mg total) by mouth daily 2 Active pregabalin (LYRICA) 100 mg capsule Take 1 capsule (100 mg total) by mouth 2 (two) times a day 2 Active QUEtiapine (SEROquel) 100 mg tablet Take 1 tablet (100 mg total) by mouth nightly at bedtime. 3 Active beclomethasone dipropionate (Qvar RediHaler) 80 mcg/actuation inhaler Inhale 1 puff 2 (two) times a day Rinse mouth with water after use. Do not swallow. Active cranberry extract/vitamin C (AZO CRANBERRY PLUS VIT C ORAL) Take by mouth daily Active UNABLE TO FIND 1 each daily Med Name: Energy Vital Stamina Active ascorbic acid (VITAMIN C) 500 mg tablet,chewable Take 1 tablet/chew tab (500 mg total) by mouth 2 (two) times a day 60 tablet/chew tab 3 Active cholecalciferol (VITAMIN D-3) 2000 unit capsule Take 1 capsule (2,000 Units total) by mouth daily 30 capsule 3 Active ondansetron (ZOFRAN) 4 mg tabletIndication s:Prevention of Post-Operative Nausea and Vomiting Take 1 tablet (4 mg total) by mouth every 6 (six) hours as needed for nausea or vomiting 30 tablet 1 3 Active senna-docusate (PERICOLACE) 8.6-50 mg Take 1 tablet by mouth 2 (two) times a day as needed for constipation 30 tablet 1 3 Active oxyCODONE-acetam inophen (PERCOCET) 5-325 mg per tabletIndication s:Pain Take 1 tablet by mouth every 4 (four) hours as needed for pain 30 tablet 3 Active Active Problems Problem Noted Date Diagnosed Date Superior glenoid labrum lesion of right shoulder 02/07/2023 Overview (02/07/2023): Added automatically from request for surgery [id number] Traumatic rotator cuff tear, right, initial enco unter 02/07/2023 Overview (02/07/2023): Added automatically from request for surgery [id number] Nontraumatic rupture of right long head biceps t endon 02/07/2023 Overview (02/07/2023): Added automatically from request for surgery [id number] Essential hypertension 10/27/2017 Overview (12/04/2022): Note: Unchanged Hyperlipidemia 10/27/2017 Overview (12/04/2022): Note: Unchanged Sensory neuropathy 01/10/2017 Overview (12/04/2022): Note: Unchanged Fibromyositis 03/09/2013 Overview (12/04/2022): Note: Unchanged Post-traumatic stress disorder 09/17/2012 Overview (12/04/2022): Note: Unchanged Moderate episode of recurrent major depressive d isorder 09/17/2012 Overview (12/04/2022): Note: Unchanged Insomnia 09/17/2012 Overview (02/07/2023): Note: Unchanged Anxiety disorder 04/06/2009 Overview (12/04/2022): Note: Unchanged - . Rule out a psychotic disorder Esophageal reflux 02/22/2009 Irritable bowel syndrome 02/22/2009 Mild intermittent asthma 02/22/2009 Resolved Problems Problem Noted Date Diagnosed Date Resolved Date Knee effusion, right 05/11/2021 023 Sprain of right knee 05/11/2021 023 Immunizations Immunization Administration Dates Next Due Tdap 12/20/2021 Social History Tobacco Use Types Packs/Day Years Used Date Smoking Tobacco: Never Smokeless Tobacco: Never Tobacco Cessation:Counseling Given: Not Answered Alcohol Use Standard Drinks/Week Comments Not Currently 0 (1 standard drink = 0.6 oz pur e alcohol) AUDIT-C Answer Date Recorded Frequency of Alcohol Consumption Not on file 02/11/2023 Q2: How many drinks containi ng alcohol do you have on a typical day when you are drinking? Patient does not drink Frequency of Binge Drinking Not on file 01/23 Personal Safety Answer Date Recorded Have you ever been in or are you currently in a harmful physical or emotional relationship or is someone making you feel afraid or unsafe? Denies 02/11/2023 Sex and Gender Information Value Date Recorded Sex Assigned at Not on file Legal Sex Male 11:08 AM PIZZA DELIVERY Gender Identity Not on file Sexual Orientation Not on file Last Filed Vital Signs Vital Sign Reading Time Taken Comments Blood Pressure 134/81 02/25/2023 1:18 PM CDT Pulse 76 02/25/2023 1:18 PM CDT Temperature 35.9 C (96.6 F) 02/11/2023 1:49 PM CDT Respiratory Rate 18 02/11/2023 1:25 PM CDT Oxygen Saturation 94% 02/11/2023 2:58 PM CDT Inhaled Oxygen Concentration - - Weight 88 kg (194 lb) 02/25/2023 1:18 PM CDT Height 167.6 cm (5' 6 ) 02/25/2023 1:18 PM CDT Body Mass Index 31.31 02/25/2023 1:18 PM CDT Plan of Treatment Not on file Insurance [facility] Care Teams Fermentation Operator Relationship Specialty Start Date End Date Ayden Chopra MD [address] [place] [id number] PCP - General 08/31/20 Tono Kumar NP [address] [place] [address] DR WHITTINGTON [address] [place] [id number] Nurse Practitioner Nurse Practitioner 02/11/23
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
--- OUTSIDE RECORDS SUMMARY | 2025-01-29 12:25 | XMS_ITS | Clinical Summary ---
Author Organization [facility] Address [address] [place] [address] Phone Care Team Providers Care Corporate Licensed Broker Name Role Phone Ayden Chopra MD Primary Care Provider [phone] Allergies Active Allergy Reactions Criticality Noted Date Comments Aspirin Anaphylaxis 02/21/2021 Clindamycin Hives 12/13/2024 Gabapentin Anaphylaxis 02/21/2021 Medications metoclopramide (REGLAN) 10 MG Tablet Take 1 Tablet by mouth 4 times daily as needed for Nausea - 1st line. 10 Tablet 1 Active omeprazole (PriLOSEC) 20 MG CAPSULE DELAYED RELEASE Take 1 Capsule by mouth daily. 30 Capsule 1 Active Lidocaine 4 % Patch 1 Patch by Transdermal route every 24 hours. 10 Patch 1 Active buPROPion HCl (WELLBUTRIN PO) Take by mouth. Active MELOXICAM PO Take by mouth. Ac tive losartan (COZAAR) 100 MG Tablet Take 100 mg by mouth daily. 2 Active QUEtiapine (SEROquel) 100 MG Tablet TAKE 1 TABLET BY MOUTH EVERYDAY AT BEDTIME 2 Active pravastatin (PRAVACHOL) 20 MG Tablet Take 20 mg by mouth daily. 2 Active cyclobenzaprine (FLEXERIL) 5 MG Tablet Take 1 Tablet by mouth 3 times daily as needed for Muscle spasms. 15 Tablet 2 Active ketorolac (TORADOL) 10 MG Tablet Take 1 Tablet by mouth every 6 hours as needed for Mild or more severe pain. 15 Tablet 2 Active albuterol 108 (90 Base) MCG/ACT Aerosol Solution take 2 Puffs by inhalation every 6 hours as needed for Wheezing. 6.7 g 2 Active cyclobenzaprine (FLEXERIL) 5 MG Tablet Take 1 Tablet by mouth nightly as needed for Muscle spasms. 15 Tablet 2 Active ondansetron (ZOFRAN) 4 MG Tablet Take 1 Tablet by mouth every 8 hours as needed for Nausea - 1st line. 10 Tablet 4 Active traMADol (ULTRAM) 50 MG TabletIndicatio ns:Pain Take 1 Tablet by mouth every 8 hours as needed for Moderate or more severe pain. Indications: Pain 12 Tablet 5 Active Encounters Date Type Department Care Team Description 12/13/2024 11:45 AM VENDING MANAGER - 12/13/2024 1:32 PM VENDING MANAGER Emergency [facility] Emergency [address] [place] [address] Kayode Tanner MD Germann, Jose A Darby, PAC Knee contusion Discharge Disposition: Discharged to home or Selfcare 12/13/2024 Travel from Last 3 Months Social History Tobacco Use Types Packs/Day Years Used Date Smoking Tobacco: Never Smokeless Tobacco: Never Alcohol Use Standard Drinks/Week Comments Not Currently 0 (1 standard drink = 0.6 oz pur e alcohol) Sex and Gender Information Value Date Recorded Sex Assigned at Not on file Legal Sex Male 12:18 AM CDT Gender Identity Not on file Sexual Orientation Not on file Last Filed Vital Signs Vital Sign Reading Time Taken Comments Blood Pressure 126/75 12/13/2024 1:30 PM VENDING MANAGER Pulse 67 12/13/2024 1:30 PM VENDING MANAGER Temperature 36.8 C (98.3 F) 12/13/2024 11:58 AM VENDING MANAGER Respiratory Rate 16 12/13/2024 1:30 PM VENDING MANAGER Oxygen Saturation 100% 12/13/2024 11:58 AM VENDING MANAGER Inhaled Oxygen Concentration - - Weight 86.2 kg (190 lb) 12/13/2024 11:58 AM VENDING MANAGER Height 167.6 cm (5' 6 ) 12/13/2024 11:58 AM VENDING MANAGER Body Mass Index 30.67 12/13/2024 11:58 AM VENDING MANAGER Plan of Treatment Health Maintenance Due Date Last Done Comments Hepatitis C Virus (HCV) Screening 1976 Hepatitis B Immunization (1 of 3 - 19+ 3-dose series) 1995 Colonoscopy 2021 Colorectal Cancer Screening 2021 Influenza Immunization (#1) 2024 SARS-COV-2 Immunization (2023- season) 2024 Respiratory Syncytial Virus (RSV) Immunization (Adult) (1 - 1-dose 75+ series) 2051 DTaP/Tdap/Td Immunization Discontinued 12/20/2021 TdaP Immunization Completed 12/20/2021 Meningococcal Immunization (ACWY) Aged Out No longer eligible based on patient's age to complete this topic Pneumococcal Immunization Combined Aged Out No longer eligible b ased on patient's age to complete this topic Rotavirus Immunization Aged Out No lo nger eligible based on patient's age to complete this topic Procedures Procedure Name Priority Date/Time Associated Diagnosis Comments XR KNEE 3 VIEWS RIGHT STAT 12/13/2024 1:06 PM VENDING MANAGER from Last 3 Months Results * XR KNEE 3 VIEWS RIGHT (12/13/2024 1:06 PM VENDING MANAGER) Anatomical Region Laterality Modality LOWER EXTREMITY, knee Right Digital Ra diography 12/13/2024 1:17 PM VENDING MANAGER Impressions 12/13/2024 1:19 PM VENDING MANAGER IMPRESSION: No acute osseous abnormality. Narrative 12/13/2024 1:19 PM VENDING MANAGER EXAM DESCRIPTION: XR KNEE 3 VIEWS RIGHT REASON FOR STUDY: fall onto bent knee 2 days ago TECHNIQUE: 3 radiographic view(s) of the right knee . COMPARISON: None FINDINGS: No acute fracture or malalignment. The joint spaces are maintained. No significant knee joint effusion. THIS IS AN ELECTRONICALLY VERIFIED FINAL REPORT 12/13/2024 1:17 PM - Electronically signed by Kahlil Ma M.D. KR: NIDIA Report ID: [id number] Reading Location: [id number] Procedure Note Kahlil Ma MD - 12/13/2024 EXAM DESCRIPTION: XR KNEE 3 VIEWS RIGHT REASON FOR STUDY: fall onto bent knee 2 days ago TECHNIQUE: 3 radiographic view(s) of the right knee . COMPARISON: None FINDINGS: No acute fracture or malalignment. The joint spaces are maintained. No significant knee joint effusion. THIS IS AN ELECTRONICALLY VERIFIED FINAL REPORT 12/13/2024 1:17 PM - Electronically signed by Kahlil Ma M.D. KR: KR Report ID: [id number] Reading Location: [id number] IMPRESSION: No acute osseous abnormality. Jose A Thompson [facility]GED WITH [facility] IMG DIAGNOSTIC ORDER JONNY Final Result from Last 3 Months Insurance MEDICAID [place] Care Teams Corporate Licensed Broker Relationship Specialty Start Date End Date Ayden Chopra MD [address] [place] [id number] PCP - General Family Medicine 02/21/21
[2025-01-29 12:35] VITALS: BP 108/67; PULSE 68; RESP 16; TEMP 36.8; O2SAT 97
--- NOTE | 2025-01-29 12:58 | ED.GENADULT ---
HPI - General Adult General Chief complaint: Upper Respiratory Infection Stated complaint: flu symptoms/throat Source: patient Mode of arrival: ambulatory Limitations: no limitations History of Present Illness HPI narrative: Patient presents for evaluation of sick symptoms for last 2 days. Symptoms include fever, sore throat, and bilateral ear pain and chronic SOB. He experienced nausea and vomiting but those symptoms have resolved. His had similar symptoms for which she was evaluated in the ER. She was diagnosed with a viral infection. He has tried taking Tylenol and has also used cough drops. Symptoms persist. Does not smoke or vape. Related Data Home Medications ?Medication ?Instructions ?Recorded ?Confirmed ?Last Taken ?Type montelukast 10 mg tablet 10 mg PO DAILY 12/23/20 10/29/24 Unknown History (Singulair) pravastatin 20 mg tablet 20 mg PO DAILY 02/01/21 10/29/24 Unknown History losartan 100 mg tablet 100 mg PO DAILY 03/23/22 10/29/24 Unknown History folic acid 1 mg tablet 1 mg PO DAILY 12/04/23 10/29/24 Unknown History bupropion HCl 150 mg 24 hr tablet, 150 mg PO DAILY 03/13/24 10/29/24 Unknown History extended release chlorthalidone 25 mg tablet 25 mg PO DAILY 08/18/24 10/29/24 Unknown History tramadol 50 mg tablet mg 12/18/24 Unknown History Allergies Allergy/AdvReac Type Severity Reaction Status Date / Time aspirin Allergy Intermediate Swelling Verified 10/29/24 09:30 of Lip/Tongue/Throat gabapentin Allergy Intermediate Swelling Verified 10/29/24 09:30 amoxicillin Allergy Mild Rash Verified 10/29/24 09:30 tomato Allergy Mild Ulcers Verified 10/29/24 09:30 Review of Systems Review of Systems: CONSTITUTIONAL: Reports fever. Denies chills. EYES: Denies visual changes, redness, or discharge. ENT: Reports sore throat and bilateral ear pain. CARDIOVASCULAR: Denies chest pain, palpitations, or edema. RESPIRATORY: Reports cough. Denies shortness of breath. GASTROINTESTINAL: Reports recent nausea and vomiting, since resolved. GENITOURINARY: Denies dysuria or hematuria. SKIN: Denies rash or itching. MUSCULOSKELETAL: Denies back pain, joint pain, or myalgia. NEUROLOGIC: Denies headache, numbness, dizziness, or weakness. PSYCHIATRIC: Denies anxiety or depression. PMFSH Past Medical History Medical History History of dental problems Wrist fracture bilateral Ankle fracture bilateral GERD (gastroesophageal reflux disease) COVID-19 may Fibromyalgia Hypercholesterolemia Hypertension Bipolar 1 disorder Anxiety and depression IBS (irritable bowel syndrome) Asthma Surgical History Surgical History Hx of elbow surgery bilateral Hx of brain surgery trauma as child Family History Family History Mother Family history non-contributory Social History Social History Smoking status: Never smoker Alcohol intake: unknown Substance use type: does not use Living arrangements: with family Gender identity (if verbalized by the patient): Male Exam Narrative: GENERAL: Well-appearing, well-nourished, and in no acute distress. HEAD: Normocephalic, atraumatic. EYES: PERRLA and EOMI. ENT: Nares clear, no rhinorrhea or epistaxis. Mucous membranes moist. Oropharynx without tonsillar hypertrophy exudate or other lesions. There is posterior pharyngeal erythema. Bilateral TMs pearly mallory nonbulging NECK: Supple. No adenopathy or masses. No carotid bruits or JVD CHEST: Clear to auscultation. No respiratory distress. No wheezes rales or rhonchi HEART: Regular rate and rhythm. No murmur heard. Normal peripheral pulses. ABDOMEN: Soft, nontender, nondistended, normal active bowel sounds. EXTREMITIES: Normal range of motion. No edema. SKIN: Warm, dry, no rash. NEURO: No focal deficits. Alert and oriented x3. PSYCH: Normal mood and affect. Course Course Emergency Course: This is a 49-year-old male who presented for evaluation of sick symptoms. Influenza, COVID and strep were negative. Exam is consistent with acute viral syndrome. Increase hydration. Qyqh-dfb-rkslbcy agents for symptom management. Follow up with primary provider. Go to the ER for worsening symptoms. Patient in agreement with plan of care. Level of Care: Express Care Visit Vital Signs Vital signs: Vital Signs Temperature 36.8 C 01/29/25 12:35 Pulse Rate 68 01/29/25 12:35 Respiratory Rate 16 01/29/25 12:35 Blood Pressure 108/67 01/29/25 12:35 Pulse Oximetry 97 01/29/25 12:35 Oxygen Delivery Room Air 01/29/25 12:35 Temperature 36.8 C 01/29/25 12:35 Pulse Rate 68 01/29/25 12:35 Respiratory Rate 16 01/29/25 12:35 Blood Pressure 108/67 01/29/25 12:35 Pulse Oximetry 97 01/29/25 12:35 Oxygen Delivery Room Air 01/29/25 12:35 Medical Decision Making Vital Signs Vital Signs: Vital Signs Temperature 36.8 C 01/29/25 12:35 Pulse Rate 68 01/29/25 12:35 Respiratory Rate 16 01/29/25 12:35 Blood Pressure 108/67 01/29/25 12:35 Pulse Oximetry 97 01/29/25 12:35 Oxygen Delivery Room Air 01/29/25 12:35 Temperature 36.8 C 01/29/25 12:35 Pulse Rate 68 01/29/25 12:35 Respiratory Rate 16 01/29/25 12:35 Blood Pressure 108/67 01/29/25 12:35 Pulse Oximetry 97 01/29/25 12:35 Oxygen Delivery Room Air 01/29/25 12:35 Lab Data Labs: Lab Results 01/29/25 01/29/25 Range/Units 13:00 13:01 POC Influenza A Ag Negative (Negative) POC Influenza B Ag Negative (Negative) POC SARS CoV-2 Ag Negative (Negative) POC Grp A Strep Screen Negative (Negative) Discharge Plan Discharge Clinical Impression: Acute viral syndrome Patient Disposition: Home, Self-Care Condition: Stable Instructions: Antibiotic Form, Viral Syndrome (ED) Additional Instructions: THE FOLLOWING MEDICATIONS SHOULD HELP WITH YOUR SYMPTOMS: CEPACOL LOZENGES: SORE THROAT DEXTROMETHORPHAN: COUGH Patient Language: Kazakh Prescriptions: No Action montelukast [Singulair] 10 mg Tablet 10 mg PO DAILY pravastatin 20 mg Tablet 20 mg PO DAILY folic acid 1 mg tablet 1 mg PO DAILY bupropion HCl 150 mg tablet extended release 24 hr 150 mg PO DAILY chlorthalidone 25 mg tablet 25 mg PO DAILY tramadol 50 mg tablet cephalexin 500 mg capsule 500 mg PO Q6H Qty: 40 0RF ondansetron 4 mg tablet,disintegrating 4 mg PO Q6H PRN (Reason: nausea and vomiting) Qty: 40 0RF losartan 100 mg tablet 100 mg PO DAILY Coricidin HBP Cough and Cold 4-30 mg tablet 1 tablet PO Q6H PRN (Reason: cough) Qty: 30 0RF Follow-up/Referrals: Nicanor Paul MD [Physician] - Time of Disposition: 13:13
[2025-01-29 13:02] LABS: EDCOVIDSCREEN Negative (Negative)
[2025-01-29 13:03] LABS: EDINFLUASCREEN Negative (Negative); EDINFLUBSCREEN Negative (Negative); EDSTREPNEGPOS1 Negative (Negative)
== END 2025-01-29 14:16 | disposition home or self-care (01) ==
PROVIDERS: Emergency Provider Nurse Practitioner
DX: B34.9 Viral infection, unspecified (principal); I10 Essential (primary) hypertension; Z20.822 Contact with and (suspected) exposure to COVID-19
CPT/HCPCS: 87081; 87426; 87804; 87880; 99213; G0463

== ENCOUNTER 2025-02-12 09:54 | Emergency (ER) | payer OTHER, SELFPAY ==
--- NOTE | ~2025-02-12 | XR_ITS ---
XR knee RT min 4V 02/12/2025 10:23 INDICATION: Right knee pain after fall PROCEDURE: 5 views right knee COMPARISON: No prior studies for comparison. FINDINGS: Fracture, dislocation or subluxation is not identified. No significant joint effusion. The soft tissues appear within normal limits. No foreign bodies are identified. IMPRESSION: 1: NO ACUTE BONE OR JOINT ABNORMALITY IDENTIFIED. Reviewed, dictated and finalized at location B.
--- OUTSIDE RECORDS SUMMARY | 2025-02-12 09:56 | XMS_ITS | Clinical Summary ---
Author Organization [facility] Address [address] [place] [address] Phone Care Team Providers Care Draw Fire Operator Name Role Phone Ayden Chopra MD Primary Care Provider [phone] Allergies Active Allergy Reactions Criticality Noted Date [...] Department Care Team Description 12/13/2024 11:45 AM HOUSING COUNSELOR - 12/13/2024 1:32 PM HOUSING COUNSELOR Emergency [facility] Emergency [address] [place] [address] Kayode Tanner MD Germann, Jose A Darby, [...] Comments Blood Pressure 126/75 12/13/2024 1:30 PM HOUSING COUNSELOR Pulse 67 12/13/2024 1:30 PM HOUSING COUNSELOR Temperature 36.8 C (98.3 F) 12/13/2024 11:58 AM HOUSING COUNSELOR Respiratory Rate 16 12/13/2024 1:30 PM HOUSING COUNSELOR Oxygen Saturation 100% 12/13/2024 11:58 AM HOUSING COUNSELOR Inhaled Oxygen Concentration - - Weight 86.2 kg (190 lb) 12/13/2024 11:58 AM HOUSING COUNSELOR Height 167.6 cm (5' 6 ) 12/13/2024 11:58 AM HOUSING COUNSELOR Body Mass Index 30.67 12/13/2024 11:58 AM HOUSING COUNSELOR Plan of Treatment Health Maintenance Due Date [...] 3 VIEWS RIGHT STAT 12/13/2024 1:06 PM HOUSING COUNSELOR from Last 3 Months Results * XR KNEE 3 VIEWS RIGHT (12/13/2024 1:06 PM HOUSING COUNSELOR) Anatomical Region Laterality Modality LOWER EXTREMITY, knee Right Digital Ra diography 12/13/2024 1:17 PM HOUSING COUNSELOR Impressions 12/13/2024 1:19 PM HOUSING COUNSELOR IMPRESSION: No acute osseous abnormality. Narrative 12/13/2024 1:19 PM HOUSING COUNSELOR EXAM DESCRIPTION: XR KNEE 3 VIEWS RIGHT [...] Kahlil Ma M.D. KR: NIDIA Report ID: [id number] Reading Location: [id number] Procedure Note Kahlil Ma MD - 12/13/2024 [...] Kahlil Ma M.D. KR: KR Report ID: [id number] Reading Location: [id number] IMPRESSION: No acute osseous abnormality. Jose A Thompson [facility] IMG DIAGNOSTIC ORDER JONNY Final Result from Last 3 Months Insurance MEDICAID [place] Care Teams Draw Fire Operator Relationship Specialty Start Date End Date Ayden Chopra MD [address] [place] [id number] PCP - General Family Medicine 02/21/21
--- OUTSIDE RECORDS SUMMARY | 2025-02-12 09:56 | XMS_ITS | Referral Summary ---
Author Organization [facility] Address [address] [place] [address] Care Team Providers Care Surface Supply Breathing Apparatus Name Role Phone Ayden Chopra MD Primary Care Provider [phone] Tono Kumar WILDLIFE ECOLOGY PROFESSOR Unavailable [phone] Allergies Active Allergy Reactions Criticality Noted Date [...] (02/07/2023): Added automatically from request for surgery [id number] Traumatic rotator cuff tear, right, initial enco unter 02/07/2023 Overview (02/07/2023): Added automatically from request for surgery [id number] Nontraumatic rupture of right long head biceps t endon 02/07/2023 Overview (02/07/2023): Added automatically from request for surgery [id number] Essential hypertension 10/27/2017 Overview (12/04/2022): Note: Unchanged [...] on file Legal Sex Male 11:08 AM CABLE SWAGER Gender Identity Not on file Sexual Orientation [...] Treatment Not on file Insurance [facility] Care Teams Surface Supply Breathing Apparatus Relationship Specialty Start Date End Date Ayden Chopra MD [address] [place] [id number] PCP - General 08/31/20 Tono Kumar NP [address] [place] [address] DR WHITTINGTON [address] [place] [id number] Nurse Practitioner Nurse Practitioner 02/11/23
--- OUTSIDE RECORDS SUMMARY | 2025-02-12 09:56 | XMS_ITS | Clinical Summary ---
Author Organization [facility] Address [address] [place] [address] Care Team Providers Care Scalp Specialist Name Role Phone Ayden Chopra MD Primary Care Provider [phone] Tono Kumar INSPECTOR DIALS Unavailable [phone] Allergies Active Allergy Reactions Criticality Noted Date [...] (02/07/2023): Added automatically from request for surgery [id number] Traumatic rotator cuff tear, right, initial enco unter 02/07/2023 Overview (02/07/2023): Added automatically from request for surgery [id number] Nontraumatic rupture of right long head biceps t endon 02/07/2023 Overview (02/07/2023): Added automatically from request for surgery [id number] Essential hypertension 10/27/2017 Overview (12/04/2022): Note: Unchanged [...] on file 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
[2025-02-12 10:00] VITALS: BP 109/72; PULSE 78; RESP 20; TEMP 36.5; O2SAT 96
--- NOTE | 2025-02-12 10:33 | ED.GENADULT ---
HPI - General Adult General Chief complaint: Extremity Injury, Lower Stated complaint: right knee injury Source: patient Mode of arrival: ambulatory Limitations: no limitations History of Present Illness HPI narrative: Patient presents for evaluation of right knee pain. Symptom onset this morning. He was working at [employer] when he slipped on a wet floor. He landed with his right leg beneath him. He now has 7/10 throbbing and burning pain in the affected area. Movement makes his symptoms worse. He took tylenol around 0300 this morning for unrelated pain associated with fibromyalgia. Related Data Home Medications ?Medication ?Instructions ?Recorded ?Confirmed ?Last Taken ?Type montelukast 10 mg tablet 10 mg PO DAILY 12/23/20 10/29/24 Unknown History (Singulair) pravastatin 20 mg tablet 20 mg PO DAILY 02/01/21 10/29/24 Unknown History losartan 100 mg tablet 100 mg PO DAILY 03/23/22 10/29/24 Unknown History folic acid 1 mg tablet 1 mg PO DAILY 12/04/23 10/29/24 Unknown History bupropion HCl 150 mg 24 hr tablet, 150 mg PO DAILY 03/13/24 10/29/24 Unknown History extended release chlorthalidone 25 mg tablet 25 mg PO DAILY 08/18/24 10/29/24 Unknown History Allergies Allergy/AdvReac Type Severity Reaction Status Date / Time aspirin Allergy Intermediate Swelling Verified 02/12/25 10:04 of Lip/Tongue/Throat gabapentin Allergy Intermediate Swelling Verified 02/12/25 10:04 amoxicillin Allergy Mild Rash Verified 02/12/25 10:04 tomato Allergy Mild Ulcers Verified 02/12/25 10:04 cephalexin Allergy Unknown Unknown Verified 02/12/25 10:04 Review of Systems Review of Systems: CONSTITUTIONAL: Denies fever, chills, or sweats. EYES: Denies visual changes, redness, or discharge. ENT: Denies rhinorrhea, congestion, sore throat, or otalgia. CARDIOVASCULAR: Denies chest pain, palpitations, or edema. RESPIRATORY: Denies cough or dyspnea. GASTROINTESTINAL: Denies abdominal pain, nausea, vomiting, or diarrhea. GENITOURINARY: Denies dysuria or hematuria. SKIN: Denies rash or itching. MUSCULOSKELETAL: Reports right knee pain. NEUROLOGIC: Denies headache, numbness, dizziness, or weakness. PSYCHIATRIC: Denies anxiety or depression. [facility] Past Medical History Medical History History of dental problems Wrist fracture bilateral Ankle fracture bilateral GERD (gastroesophageal reflux disease) COVID-19 may Fibromyalgia Hypercholesterolemia Hypertension Bipolar 1 disorder Anxiety and depression IBS (irritable bowel syndrome) Asthma Surgical History Surgical History Hx of elbow surgery bilateral Hx of brain surgery trauma as child Family History Family History Mother Family history non-contributory Social History Social History Smoking status: Never smoker Alcohol intake: unknown Substance use type: does not use Living arrangements: with family Gender identity (if verbalized by the patient): Male Exam Narrative: GENERAL: Well-appearing, well-nourished, and in no acute distress. HEAD: Normocephalic, atraumatic. EYES: PERRLA and EOMI. ENT: Nares clear, no rhinorrhea or epistaxis. Mucous membranes moist. Oropharynx without tonsillar hypertrophy exudate or other lesions. Bilateral TMs pearly mallory nonbulging NECK: Supple. No adenopathy or masses. No carotid bruits or JVD CHEST: Clear to auscultation. No respiratory distress. No wheezes rales or rhonchi HEART: Regular rate and rhythm. No murmur heard. Normal peripheral pulses. ABDOMEN: Soft, nontender, nondistended, normal active bowel sounds. EXTREMITIES: Full range of motion of the right knee. There is positive crepitus. No deformity. There is tenderness noted in the medial and lateral aspect of the right knee SKIN: Warm, dry, no rash. NEURO: No focal deficits. Alert and oriented x3. PSYCH: Normal mood and affect. Course Course Emergency Course: This is a 49-year-old male presented for evaluation right knee pain. X-ray negative for fracture. Exam consistent with strain. Recommend ice, compression, elevation and voltaren for pain. Follow-up with primary provider. Go to the ER for worsening symptoms. Patient in agreement with of care. Level of Care: Express Care Visit Vital Signs Vital signs: Vital Signs Temperature 36.5 C 02/12/25 10:00 Pulse Rate 78 02/12/25 10:00 Respiratory Rate 20 02/12/25 10:00 Blood Pressure 109/72 02/12/25 10:00 Pulse Oximetry 96 02/12/25 10:00 Oxygen Delivery Room Air 02/12/25 10:00 Temperature 36.5 C 02/12/25 10:00 Pulse Rate 78 02/12/25 10:00 Respiratory Rate 20 02/12/25 10:00 Blood Pressure 109/72 02/12/25 10:00 Pulse Oximetry 96 02/12/25 10:00 Oxygen Delivery Room Air 02/12/25 10:00 Medical Decision Making Vital Signs Vital Signs: Vital Signs Temperature 36.5 C 02/12/25 10:00 Pulse Rate 78 02/12/25 10:00 Respiratory Rate 20 02/12/25 10:00 Blood Pressure 109/72 02/12/25 10:00 Pulse Oximetry 96 02/12/25 10:00 Oxygen Delivery Room Air 02/12/25 10:00 Temperature 36.5 C 02/12/25 10:00 Pulse Rate 78 02/12/25 10:00 Respiratory Rate 20 02/12/25 10:00 Blood Pressure 109/72 02/12/25 10:00 Pulse Oximetry 96 02/12/25 10:00 Oxygen Delivery Room Air 02/12/25 10:00 Imaging Data Radiologist's impression: XR knee RT min 4V 02/12/2025 10:23 INDICATION: Right knee pain after fall PROCEDURE: 5 views right knee COMPARISON: No prior studies for comparison. FINDINGS: Fracture, dislocation or subluxation is not identified. No significant joint effusion. The soft tissues appear within normal limits. No foreign bodies are identified. IMPRESSION: 1: NO ACUTE BONE OR JOINT ABNORMALITY IDENTIFIED. Discharge Plan Discharge Clinical Impression: Strain of right knee Patient Disposition: Home, Self-Care Condition: Stable Instructions: Antibiotic Form, Muscle Strain (ED) Additional Instructions: VOLTAREN GEL IS SOLD [id number] AND CAN ASSIST WITH PAIN REDUCTION, SWELLING AND INFLAMMATION MAKE SURE TO ICE THE RIGHT KNEE KEEP THE RIGHT LEG ELEVATED WEAR YOUR KNEE SLEEVE Patient Language: Maltese Prescriptions: No Action montelukast [Singulair] 10 mg Tablet 10 mg PO DAILY pravastatin 20 mg Tablet 20 mg PO DAILY folic acid 1 mg tablet 1 mg PO DAILY bupropion HCl 150 mg tablet extended release 24 hr 150 mg PO DAILY chlorthalidone 25 mg tablet 25 mg PO DAILY ondansetron 4 mg tablet,disintegrating 4 mg PO Q6H PRN (Reason: nausea and vomiting) Qty: 40 0RF losartan 100 mg tablet 100 mg PO DAILY Follow-up/Referrals: Arnold Laws MD [Physician] - Time of Disposition: 10:49
== END 2025-02-12 10:53 | disposition home or self-care (01) ==
PROVIDERS: Emergency Provider Nurse Practitioner
DX: S86.911A Strain of unspecified muscle(s) and tendon(s) at lower leg level, right leg, initial encounter (principal); W01.0XXA Fall on same level from slipping, tripping and stumbling without subsequent striking against object, initial encounter; Y99.0 Civilian activity done for income or pay; K21.9 Gastro-esophageal reflux disease without esophagitis; M79.7 Fibromyalgia; E78.00 Pure hypercholesterolemia, unspecified; I10 Essential (primary) hypertension; J45.909 Unspecified asthma, uncomplicated; K58.9 Irritable bowel syndrome, unspecified; Z86.16 Personal history of COVID-19; F41.9 Anxiety disorder, unspecified; F32.A Depression, unspecified
CPT/HCPCS: 73564; 99213; G0463

== ENCOUNTER 2025-03-16 10:14 | Emergency (ER) | payer OTHER, SELFPAY ==
[2025-03-16 10:18] VITALS: BP 107/70; PULSE 78; RESP 16; TEMP 36.4; O2SAT 98
--- NOTE | 2025-03-16 10:21 | ED.URI ---
HPI - URI/Sore Throat General Chief Complaint: Upper Respiratory Infection Stated Complaint: Nausea/Sore Throat Time Seen by Provider: 03/16/25 10:22 History of Present Illness HPI Narrative: 49-year-old male presented for complaint of sore throat and nausea. Onset yesterday. He endorses allergies and has been complaint with his antihistamines. Denies cough,sob, wheezing, diarrhea, fevers or chills. Related Data Home Medications ?Medication ?Instructions ?Recorded ?Confirmed ?Last Taken ?Type montelukast 10 mg tablet 10 mg PO DAILY 12/23/20 03/16/25 Unknown History (Singulair) pravastatin 20 mg tablet 20 mg PO DAILY 02/01/21 03/16/25 Unknown History losartan 100 mg tablet 100 mg PO DAILY 03/23/22 03/16/25 Unknown History folic acid 1 mg tablet 1 mg PO DAILY 12/04/23 03/16/25 Unknown History bupropion HCl 150 mg 24 hr tablet, 150 mg PO DAILY 03/13/24 03/16/25 Unknown History extended release chlorthalidone 25 mg tablet 25 mg PO DAILY 08/18/24 03/16/25 Unknown History Allergies Allergy/AdvReac Type Severity Reaction Status Date / Time aspirin Allergy Intermediate Swelling Verified 03/16/25 10:30 of Lip/Tongue/Throat gabapentin Allergy Intermediate Swelling Verified 03/16/25 10:30 amoxicillin Allergy Mild Rash Verified 03/16/25 10:30 tomato Allergy Mild Ulcers Verified 03/16/25 10:30 cephalexin Allergy Unknown Unknown Verified 03/16/25 10:30 Review of Systems Review of Systems: [facility] Past Medical History Medical History History of dental problems Wrist fracture bilateral Ankle fracture bilateral GERD (gastroesophageal reflux disease) COVID-19 may Fibromyalgia Hypercholesterolemia Hypertension Bipolar 1 disorder Anxiety and depression IBS (irritable bowel syndrome) Asthma Surgical History Surgical History Hx of elbow surgery bilateral Hx of brain surgery trauma as child Family History Family History Mother Family history non-contributory Social History Social History Smoking status: Never smoker Alcohol intake: unknown Substance use type: does not use Living arrangements: with family Gender identity (if verbalized by the patient): Male Exam Narrative: GENERAL: well-appearing, no acute distress. EYES: conjunctivae clear ENT: Mucous membranes moist. TMs pearly mallory with normal light reflex bilaterally; no tragal tenderness. Oropharynx not erythematous without lesions. Tonsils not enlarged and without exudate. No drooling, no hoarseness, no trismus, uvula midline. No tripod positioning, hot potato voice, or soft palate swelling. NECK: Supple. No lymphadenopathy CHEST: Clear to auscultation, breath sounds equal. No respiratory distress, speaks in full sentences. HEART: Regular rate and rhythm. No murmur heard. SKIN: Warm, dry, no rash. NEURO: Alert and oriented x3. Course Course Emergency Course: Patient is aware of diagnosis, understands and agrees to treatment plan. Anticipatory guidance given. Patient agrees to follow-up as directed and is aware of reasons to seek care at the emergency department. Portions of this record may have been created with voice recognition software Level of Care: Express Care Visit Vital Signs Vital signs: Vital Signs Temperature 97.6 F 03/16/25 10:18 Pulse Rate 78 03/16/25 10:18 Respiratory Rate 16 03/16/25 10:18 Blood Pressure 107/70 03/16/25 10:18 Pulse Oximetry 98 03/16/25 10:18 Oxygen Delivery Room Air 03/16/25 10:18 Temperature 97.6 F 03/16/25 10:18 Pulse Rate 78 03/16/25 10:18 Respiratory Rate 16 03/16/25 10:18 Blood Pressure 107/70 03/16/25 10:18 Pulse Oximetry 98 03/16/25 10:18 Oxygen Delivery Room Air 03/16/25 10:18 MDM - URI/Sore Throat MDM Narrative Medical decision making narrative: neg strep result reviewed with pt. Advise supportive treatments. Patient is appropriate for outpatient treatment and follow-up. Differential Diagnosis Differential diagnosis: Likely upper respiratory infection, viral infection and pharyngitis Lab Data Labs: Lab Results 03/16/25 Range/Units 10:25 POC Grp A Strep Screen Negative (Negative) Discharge Plan Discharge Clinical Impression: Pharyngitis Patient Disposition: Home Condition: Stable Instructions: Antibiotic Form, Strep Throat (ED) Additional Instructions: Rapid strep swab was negative today You will be notified in a few days if the culture comes back positive for strep, and appropriate antibiotics will be called in at that time. if symptoms are due to a viral illness, it is not treated with antibiotics. Viral symptoms can be present for up to 10-14 days. Recommendations: Flonase spray and Zyrtec for sinus congestion Tylenol every 8 hours as needed for pain/fever Soft foods, cool liquids, warm tea. Gargle with warm saltwater twice a day. Chloraseptic spray and throat lozenges. Rest and stay hydrated. --Follow up with your PCP --Go to the ER immediately if you cannot swallow your saliva, trouble breathing/wheezing, throat swelling, pain is persistent and severe Patient Language: [place] Prescriptions: No Action montelukast [Singulair] 10 mg Tablet 10 mg PO DAILY pravastatin 20 mg Tablet 20 mg PO DAILY folic acid 1 mg tablet 1 mg PO DAILY bupropion HCl 150 mg tablet extended release 24 hr 150 mg PO DAILY chlorthalidone 25 mg tablet 25 mg PO DAILY ondansetron 4 mg tablet,disintegrating 4 mg PO Q6H PRN (Reason: nausea and vomiting) Qty: 40 0RF losartan 100 mg tablet 100 mg PO DAILY Follow-up/Referrals: PHYSICIAN NOT ON STAFF,NONSTAFF [Primary Care Provider] - Time of Disposition: 10:45
[2025-03-16 10:37] LABS: EDSTREPNEGPOS1 Negative (Negative)
--- OUTSIDE RECORDS SUMMARY | 2025-03-16 11:40 | XMS_ITS | Clinical Summary ---
Author Organization [facility] Address [address] [place] [address] Care Team Providers Care Resident Care Spec Name Role Phone Ayden Chopra MD Primary Care Provider [phone] Tono Kumar HOOK UP Unavailable [phone] Allergies Active Allergy Reactions Criticality Noted Date [...] (02/07/2023): Added automatically from request for surgery [id number] Traumatic rotator cuff tear, right, initial enco unter 02/07/2023 Overview (02/07/2023): Added automatically from request for surgery [id number] Nontraumatic rupture of right long head biceps t endon 02/07/2023 Overview (02/07/2023): Added automatically from request for surgery [id number] Essential hypertension 10/27/2017 Overview (12/04/2022): Note: Unchanged [...] on file 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
--- OUTSIDE RECORDS SUMMARY | 2025-03-16 11:40 | XMS_ITS | Referral Summary ---
Author Organization [facility] Address [address] [place] [address] Care Team Providers Care Finance Clerk Name Role Phone Ayden Chopra MD Primary Care Provider [phone] Tono Kumar REMELTER Unavailable [phone] Allergies Active Allergy Reactions Criticality Noted Date [...] (02/07/2023): Added automatically from request for surgery [id number] Traumatic rotator cuff tear, right, initial enco unter 02/07/2023 Overview (02/07/2023): Added automatically from request for surgery [id number] Nontraumatic rupture of right long head biceps t endon 02/07/2023 Overview (02/07/2023): Added automatically from request for surgery [id number] Essential hypertension 10/27/2017 Overview (12/04/2022): Note: Unchanged [...] on file 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
--- OUTSIDE RECORDS SUMMARY | 2025-03-16 11:40 | XMS_ITS | Clinical Summary ---
Author Organization [facility] Address [address] [place] [address] Phone Care Team Providers Care Quality Assurance Auditor Name Role Phone Ayden Chopra MD Primary Care Provider [phone] Allergies Active Allergy Reactions Criticality Noted Date [...] pain. 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 Pulse 67 12/13/2024 1:30 PM CROCODILE FARMER Temperature 36.8 C (98.3 F) 12/13/2024 11:58 AM CROCODILE FARMER Respiratory Rate 16 12/13/2024 1:30 PM CROCODILE FARMER Oxygen Saturation 100% 12/13/2024 11:58 AM CROCODILE FARMER Inhaled Oxygen Concentration - - Weight 86.2 kg (190 lb) 12/13/2024 11:58 AM CROCODILE FARMER Height 167.6 cm (5' 6 ) 12/13/2024 11:58 AM CROCODILE FARMER Body Mass Index 30.67 12/13/2024 11:58 AM CROCODILE FARMER Plan of Treatment Health Maintenance Due Date Last Done Comments Hepatitis C Virus (HCV) Screening 1976 Hepatitis B Immunization (1 of 3 - 19+ 3-dose series) 1995 Colonoscopy 2021 Colorectal Cancer Screening 2021 Influenza Immunization (#1) 2024 SARS-COV-2 Immunization ( season) 2024 Respiratory Syncytial Virus (RSV) Immunization [...] on patient's age to complete this topic Insurance MEDICAID [place] Care Teams Quality Assurance Auditor Relationship Specialty Start Date End Date Ayden Chopra MD [address] [place] [id number] PCP - General Family Medicine 02/21/21
== END 2025-03-16 10:49 | disposition home or self-care (01) ==
PROVIDERS: Emergency Provider Nurse Practitioner Family
DX: J02.9 Acute pharyngitis, unspecified (principal); I10 Essential (primary) hypertension; K21.9 Gastro-esophageal reflux disease without esophagitis; M79.7 Fibromyalgia; E78.00 Pure hypercholesterolemia, unspecified; K58.9 Irritable bowel syndrome, unspecified; J45.909 Unspecified asthma, uncomplicated; F41.9 Anxiety disorder, unspecified; F32.A Depression, unspecified; Z86.16 Personal history of COVID-19
CPT/HCPCS: 87081; 87880; 99213; G0463

== ENCOUNTER 2025-05-11 09:24 | Emergency (ER) | payer OTHER, SELFPAY ==
[2025-05-11 09:28] VITALS: BP 107/67; PULSE 68; RESP 18; TEMP 36.6; O2SAT 98
--- NOTE | 2025-05-11 09:54 | ED.MALEGU ---
HPI - Male Genitourinary General Chief complaint: Urogenital-Male Stated complaint: Urinary Problem Time Seen by Provider: 05/11/25 09:39 Source: patient and RN notes reviewed Mode of arrival: ambulatory Limitations: no limitations History of Present Illness HPI Narrative: Patient presents today with a 3 week history of urinary frequency, dysuria and bilateral flank pain that has been worsening since onset. Denies abdominal pain, hematuria, fever, testicular pain, penile discharge. Denies concerns for sexually transmitted infections. He has been increasing his water intake in drinking cranberry juice as well. Related Data Home Medications ?Medication ?Instructions ?Recorded ?Confirmed ?Last Taken ?Type montelukast 10 mg tablet 10 mg PO DAILY 12/23/20 03/16/25 Unknown History (Singulair) pravastatin 20 mg tablet 20 mg PO DAILY 02/01/21 03/16/25 Unknown History losartan 100 mg tablet 100 mg PO DAILY 03/23/22 03/16/25 Unknown History folic acid 1 mg tablet 1 mg PO DAILY 12/04/23 03/16/25 Unknown History bupropion HCl 150 mg 24 hr tablet, 150 mg PO DAILY 03/13/24 03/16/25 Unknown History extended release chlorthalidone 25 mg tablet 25 mg PO DAILY 08/18/24 03/16/25 Unknown History omeprazole 20 mg capsule,delayed mg 05/11/25 Unknown History release Allergies Allergy/AdvReac Type Severity Reaction Status Date / Time aspirin Allergy Intermediate Swelling Verified 05/11/25 09:34 of Lip/Tongue/Throat gabapentin Allergy Intermediate Swelling Verified 05/11/25 09:34 amoxicillin Allergy Mild Rash Verified 05/11/25 09:34 tomato Allergy Mild Ulcers Verified 05/11/25 09:34 cephalexin Allergy Unknown Unknown Verified 05/11/25 09:34 Review of Systems Review of Systems: CONSTITUTIONAL: Denies body aches, fever, chills, or sweats. EYES: Denies visual changes, redness, or discharge. ENT: Denies rhinorrhea, congestion, sore throat, or otalgia. CARDIOVASCULAR: Denies chest pain, palpitations, or edema. RESPIRATORY: Denies cough or dyspnea. GASTROINTESTINAL: Denies abdominal pain, nausea, vomiting, or diarrhea.+ bilateral flank pain GENITOURINARY: + dysuria, frequency SKIN: Denies rash, itching, or wounds. MUSCULOSKELETAL: Denies back pain, joint pain, or myalgia. NEUROLOGIC: Denies headache, numbness, tingling, or weakness. PSYCH: Denies depression or anxiety. [facility] Past Medical History Medical History History of dental problems Wrist fracture bilateral Ankle fracture bilateral GERD (gastroesophageal reflux disease) COVID-19 may Fibromyalgia Hypercholesterolemia Hypertension Bipolar 1 disorder Anxiety and depression IBS (irritable bowel syndrome) Asthma Surgical History Surgical History Hx of elbow surgery bilateral Hx of brain surgery trauma as child Family History Family History Mother Family history non-contributory Social History Social History Smoking status: Never smoker Alcohol intake: unknown Substance use type: does not use Living arrangements: with family Gender identity (if verbalized by the patient): Male Comments At time of signature, I have reviewed and agree with nursing past medical, surgical, social and family history unless otherwise noted. Please see nursing chart for further information. There is no relevant family history pertinent to the presenting complaint Exam Narrative: GENERAL: Well-appearing, well-nourished, and in no acute distress. HEAD: Normocephalic, atraumatic. EYES: EOMI. No redness or drainage. Conjunctivae normal. ENT: Mucous membranes pink and moist. NECK: Normal AROM. CHEST: No respiratory distress. Clear to auscultation. HEART: Regular rate and rhythm. No murmur appreciated. Normal peripheral pulses. ABDOMEN: Soft, nontender, nondistended, normal active bowel sounds. -CVAT MUSCULOSKELETAL: No bony tenderness of the spine. Patient has bilateral lower lumbar paraspinal muscle tenderness. This increases with movement. EXTREMITIES: Normal range of motion. No edema. SKIN: Warm, dry, no rash. Capillary refill normal. Normal skin turgor. NEURO: No focal deficits. Alert and oriented x3. Gait steady. PSYCH: Normal affect. No signs of depression or anxiety. Course Course Level of Care: Express Care Visit Vital Signs Vital signs: Vital Signs Temperature 98 F 06/18/25 09:28 Pulse Rate 68 05/11/25 09:28 Respiratory Rate 18 05/11/25 09:28 Blood Pressure 107/67 05/11/25 09:28 Pulse Oximetry 98 05/11/25 09:28 Oxygen Delivery Room Air 05/11/25 09:28 Temperature 98 F 05/11/25 09:28 Pulse Rate 68 05/11/25 09:28 Respiratory Rate 18 05/11/25 09:28 Blood Pressure 107/67 05/11/25 09:28 Pulse Oximetry 98 05/11/25 09:28 Oxygen Delivery Room Air 05/11/25 09:28 Reviewed MDM - Male Genitourinary MDM Narrative Medical decision making narrative: Patient's urinalysis shows 1+ hematuria but is otherwise normal. This could be an indicator of UTI. Will start patient on a course of Cipro due to allergies and drug interactions. Culture pending. He has been instructed to follow-up with his PCP if symptoms persist, when he is finished with his antibiotics Differential Diagnosis Differential diagnosis: Likely urinary tract infection, urethritis and other (Pyelonephritis) Lab Data Attestation: I reviewed the patient's lab results. Labs: Lab Results 05/11/25 Range/Units 10:08 POC Urine Color Yellow POC Urine Clarity Clear POC Urine pH 6.0 POC Ur Specif [place] 1.025 POC Urine Protein Negative (Negative) POC Ur Glucose (UA) Negative (Negative) POC Urine Ketones Negative (Negative) POC Urine Blood 1+ (Negative) POC Urine Nitrite Negative (Negative) POC Urine Bilirubin Negative (Negative) POC Urine Urobilinogen 1.0 POC U Leukocyte Esteras Negative (Negative) Critical Care Time Critical Care Time Critical Care Time: No Discharge Plan Discharge Clinical Impression: Urinary tract infection Qualifiers: Urinary tract infection type: acute cystitis Hematuria presence: with hematuria Qualified Code(s): N30.01 - Acute cystitis with hematuria Patient Disposition: Home Condition: Stable Instructions: Antibiotic Form Additional Instructions: Your urine shows infection today. Take Cipro as prescribed until gone. Your urine will be sent of for a culture to identify what type of bacteria is causing your infection. If the culture shows that your medication will not get rid of your infection, you will be notified and a new antibiotic will be called in for you. If your symptoms worsen to include fever, sweats, chills, nausea, vomiting, severe abdominal or back pain, please go to the ER for further evaluation. Patient Language: [place] Prescriptions: New ciprofloxacin HCl 250 mg tablet 250 mg PO Q12H 5 Days Qty: 10 0RF No Action montelukast [Singulair] 10 mg Tablet 10 mg PO DAILY pravastatin 20 mg Tablet 20 mg PO DAILY folic acid 1 mg tablet 1 mg PO DAILY bupropion HCl 150 mg tablet extended release 24 hr 150 mg PO DAILY chlorthalidone 25 mg tablet 25 mg PO DAILY omeprazole 20 mg capsule,delayed release(DR/EC) losartan 100 mg tablet 100 mg PO DAILY Follow-up/Referrals: PHYSICIAN NOT ON STAFF,NONSTAFF [Primary Care Provider] - Stand Alone Forms: Work/School Release IP Time of Disposition: 10:23
[2025-05-11 10:10] LABS: EDUAAPPEAR Clear; EDUABILI Negative (Negative); EDUABLOOD 1+ (Negative); EDUACOLOR1 Yellow; EDUAGLUCOSE Negative (Negative); EDUAKETONE Negative (Negative); EDUALEUKO Negative (Negative); EDUANITRATE Negative (Negative); EDUAPROTEIN Negative (Negative); EDUASPGRAVITY 1.025
--- OUTSIDE RECORDS SUMMARY | 2025-05-11 10:11 | XMS_ITS | Clinical Summary ---
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 t endon 02/07/2023 Overview (02/07/2023): Added automatically from request for surgery [id number] Essential hypertension 10/27/2017 Overview (12/04/2022): Note: Unchanged [...] on file 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
--- OUTSIDE RECORDS SUMMARY | 2025-05-11 10:11 | XMS_ITS | Referral Summary ---
Author Organization [facility] Address [address] [place] [address] Care Team Providers Care Medical Recruiter Name Role Phone Ayden Chopra MD Primary Care Provider [phone] Tono Kumar VIDEO AND SOUND RECORDER Unavailable [phone] Allergies Active Allergy Reactions Criticality Noted Date [...] (02/07/2023): Added automatically from request for surgery [id number] Traumatic rotator cuff tear, right, initial enco unter 02/07/2023 Overview (02/07/2023): Added automatically from request for surgery [id number] Nontraumatic rupture of right long head biceps t endon 02/07/2023 Overview (02/07/2023): Added automatically from request for surgery [id number] Essential hypertension 10/27/2017 Overview (12/04/2022): Note: Unchanged [...] on file 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
--- OUTSIDE RECORDS SUMMARY | 2025-05-11 10:11 | XMS_ITS | Clinical Summary ---
Author Organization [facility] Address [address] [place] [address] Phone Care Team Providers Care Hand Finisher Name Role Phone Ayden Chopra MD Primary Care Provider [phone] Allergies Active Allergy Reactions Criticality Noted Date [...] Comments Blood Pressure 126/75 12/13/2024 1:30 PM METAL DOOR ASSEMBLER Pulse 67 12/13/2024 1:30 PM METAL DOOR ASSEMBLER Temperature 36.8 C (98.3 F) 12/13/2024 11:58 AM METAL DOOR ASSEMBLER Respiratory Rate 16 12/13/2024 1:30 PM METAL DOOR ASSEMBLER Oxygen Saturation 100% 12/13/2024 11:58 AM METAL DOOR ASSEMBLER Inhaled Oxygen Concentration - - Weight 86.2 kg (190 lb) 12/13/2024 11:58 AM METAL DOOR ASSEMBLER Height 167.6 cm (5' 6) 12/13/2024 11:58 AM METAL DOOR ASSEMBLER Body Mass Index 30.67 12/13/2024 11:58 AM METAL DOOR ASSEMBLER Plan of Treatment Health Maintenance Due Date Last Done Comments Hepatitis C Virus (HCV) Screening 1975 Hepatitis B Immunization (1 of 3 - 19+ 3-dose series) 1995 Cologuard 2021 Colonoscopy 2021 Colorectal Cancer Screening 2021 Immunochemical Fecal Occult Blood 2021 SARS-COV-2 Immunization (2023-25 season) 2024 Influenza Immunization (Seas on Ended) 2025 Respiratory Syncytial Virus (RSV) Immunization (Adult) (1 - 1-dose 75+ series) 2051 DTaP/Tdap/Td Immunization Discontinued 12/20/2021 TdaP Immunization Completed 12/20/2021 Human Papillomavirus (HPV) Immunization Aged Out No longer eligible b ased on patient's age to complete this topic Meningococcal Immunization (ACWY) Aged Out No longer eligible based on patient's age to complete this topic Pneumococcal Immunization Combined Aged Out No longer eligible based on patient's age to complete this topic Rotavirus Immunization Aged Out No lo nger eligible based on patient's age to complete this topic Insurance [place]ICAID [place] Care Teams Hand Finisher Relationship Specialty Start Date End Date Ayden Chopra MD [address] [place] [id number] PCP - General Family Medicine 02/21/21
== END 2025-05-11 10:33 | disposition home or self-care (01) ==
PROVIDERS: Emergency Provider Nurse Practitioner
DX: N30.01 Acute cystitis with hematuria (principal); I10 Essential (primary) hypertension; K21.9 Gastro-esophageal reflux disease without esophagitis; M79.7 Fibromyalgia; J45.909 Unspecified asthma, uncomplicated; E78.00 Pure hypercholesterolemia, unspecified; F41.9 Anxiety disorder, unspecified; F32.A Depression, unspecified; Z86.16 Personal history of COVID-19
CPT/HCPCS: 81003; 87086; 99213; G0463

== ENCOUNTER 2025-06-25 10:59 | Emergency (ER) | payer OTHER, SELFPAY ==
--- OUTSIDE RECORDS SUMMARY | 2025-06-25 11:01 | XMS_ITS | Clinical Summary ---
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 t endon 02/07/2023 Overview (02/07/2023): Added automatically from request for surgery [id number] Essential hypertension 10/27/2017 Overview (12/04/2022): Note: Unchanged [...] on file 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
--- OUTSIDE RECORDS SUMMARY | 2025-06-25 11:01 | XMS_ITS | Clinical Summary ---
Author Organization [facility] Address [address] [place] [address] Phone Care Team Providers Care Finance Vice President Name Role Phone Ayden Chopra MD Primary Care Provider [phone] Allergies Active Allergy Reactions Criticality Noted Date [...] Comments Blood Pressure 126/75 12/13/2024 1:30 PM CLAY GRINDER Pulse 67 12/13/2024 1:30 PM CLAY GRINDER Temperature 36.8 C (98.3 F) 12/13/2024 11:58 AM CLAY GRINDER Respiratory Rate 16 12/13/2024 1:30 PM CLAY GRINDER Oxygen Saturation 100% 12/13/2024 11:58 AM CLAY GRINDER Inhaled Oxygen Concentration - - Weight 86.2 kg (190 lb) 12/13/2024 11:58 AM CLAY GRINDER Height 167.6 cm (5' 6) 12/13/2024 11:58 AM CLAY GRINDER Body Mass Index 30.67 12/13/2024 11:58 AM CLAY GRINDER Plan of Treatment Health Maintenance Due Date Last Done Comments Hepatitis C Virus (HCV) Screening 1976 Hepatitis B Immunization (1 of 3 - 19+ 3-dose series) 1995 Cologuard 2021 Colonoscopy 2021 Colorectal Cancer Screening 2021 Immunochemical Fecal Occult Blood 2021 SARS-COV-2 Immunization (2023-25 season) 2024 Influenza Immunization (#1) 2025 Respiratory Syncytial Virus (RSV) Immunization (Adult) [...] this topic Insurance MEDICAID [place] Care Teams Finance Vice President Relationship Specialty Start Date End Date Ayden Chopra MD [address] [place] [id number] PCP - General Family Medicine 02/21/21
--- OUTSIDE RECORDS SUMMARY | 2025-06-25 11:01 | XMS_ITS | Referral Summary ---
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 t endon 02/07/2023 Overview (02/07/2023): Added automatically from request for surgery [id number] Essential hypertension 10/27/2017 Overview (12/04/2022): Note: Unchanged [...] on file 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
[2025-06-25 11:03] VITALS: BP 118/74; PULSE 56; RESP 16; TEMP 36.6; O2SAT 99
--- NOTE | 2025-06-25 11:49 | ED_ITS ---
HPI - General Adult General Chief complaint: Nausea/Vomiting/Diarrhea Stated complaint: Vomiting Source: patient Mode of arrival: ambulatory Limitations: no limitations History of Present Illness HPI narrative: Patient presents for evaluation of sinus symptoms for last week. Symptoms include sinus congestion, thick yellow nasal drainage and fever. He reports some nausea and vomiting which he attributes to postnasal drainage. He denies cough or SOB. He has experienced similar symptoms in the past with a sinus infection. Related Data Home Medications ?Medication ?Instructions ?Recorded ?Confirmed ?Last Taken ?Type montelukast 10 mg tablet 10 mg PO DAILY 12/23/20 03/16/25 Unknown History (Singulair) pravastatin 20 mg tablet 20 mg PO DAILY 02/01/21 03/16/25 Unknown History losartan 100 mg tablet 100 mg PO DAILY 03/23/22 03/16/25 Unknown History folic acid 1 mg tablet 1 mg PO DAILY 12/04/23 03/16/25 Unknown History bupropion HCl 150 mg 24 hr tablet, 150 mg PO DAILY 03/13/24 03/16/25 Unknown History extended release chlorthalidone 25 mg tablet 25 mg PO DAILY 08/18/24 03/16/25 Unknown History omeprazole 20 mg capsule,delayed mg 05/11/25 Unknown History release Allergies Allergy/AdvReac Type Severity Reaction Status Date / Time aspirin Allergy Intermediate Swelling Verified 05/11/25 09:34 of Lip/Tongue/Throat gabapentin Allergy Intermediate Swelling Verified 05/11/25 09:34 amoxicillin Allergy Mild Rash Verified 05/11/25 09:34 tomato Allergy Mild Ulcers Verified 05/11/25 09:34 cephalexin Allergy Unknown Unknown Verified 05/11/25 09:34 Review of Systems Review of Systems: CONSTITUTIONAL: Reports fever. Denies chills, or sweats. EYES: Denies visual changes, redness, or discharge. ENT:Reports sinus congestion and yellow nasal drainage CARDIOVASCULAR: Denies chest pain, palpitations, or edema. RESPIRATORY: Denies cough or dyspnea. GASTROINTESTINAL: Reports nausea and vomiting. Denies abdominal pain or diarrhea. GENITOURINARY: Denies dysuria or hematuria. SKIN: Denies rash or itching. MUSCULOSKELETAL: Denies back pain, joint pain, or myalgia. NEUROLOGIC: Denies headache, numbness, dizziness, or weakness. PSYCHIATRIC: Denies anxiety or depression. [facility] Past Medical History Medical History History of dental problems Wrist fracture bilateral Ankle fracture bilateral GERD (gastroesophageal reflux disease) COVID-19 may Fibromyalgia Hypercholesterolemia Hypertension Bipolar 1 disorder Anxiety and depression IBS (irritable bowel syndrome) Asthma Surgical History Surgical History Hx of elbow surgery bilateral Hx of brain surgery trauma as child Family History Family History Mother Family history non-contributory Social History Social History Smoking status: Never smoker Alcohol intake: unknown Substance use type: does not use Living arrangements: with family Gender identity (if verbalized by the patient): Male Exam Narrative: GENERAL: Well-appearing, well-nourished, and in no acute distress. HEAD: Normocephalic, atraumatic. EYES: PERRLA and EOMI. ENT: Nares clear, no rhinorrhea or epistaxis. Mucous membranes moist. There is frontal and bilateral maxillary sinyusOropharynx without tonsillar hypertrophy e xudate or other lesions. Bilateral TMs pearly mallory nonbulging NECK: Supple. No adenopathy or masses. No carotid bruits or JVD CHEST: Clear to auscultation. No respiratory distress. No wheezes rales or rhonchi HEART: Regular rate and rhythm. No murmur heard. Normal peripheral pulses. ABDOMEN: Soft, nontender, nondistended, normal active bowel sounds. EXTREMITIES: Normal range of motion. No edema. SKIN: Warm, dry, no rash. NEURO: No focal deficits. Alert and oriented x3. PSYCH: Normal mood and affect. Course Course Emergency Course: This is a 49 year old male who presented for evaluation of sinus symptoms. He meets criteria for bacterial sinusitis based upon duration of time in which she has been symptomatic with presence of fever and mucopurulent discharge. Will DC with doxycycline and zofran. Follow up with primary care provider. Go to the ER for worsening symptoms. Pt in agreement with plan of care. Level of Care: Express Care Visit Vital Signs Vital signs: Vital Signs Temperature 36.6 C 06/25/25 11:03 Pulse Rate 56 L 06/25/25 11:03 Respiratory Rate 16 06/25/25 11:03 Blood Pressure 118/74 06/25/25 11:03 Pulse Oximetry 99 06/25/25 11:03 Oxygen Delivery Room Air 06/25/25 11:03 Temperature 36.6 C 06/25/25 11:03 Pulse Rate 56 L 06/25/25 11:03 Respiratory Rate 16 06/25/25 11:03 Blood Pressure 118/74 06/25/25 11:03 Pulse Oximetry 99 06/25/25 11:03 Oxygen Delivery Room Air 06/25/25 11:03 Medical Decision Making Vital Signs Vital Signs: Vital Signs Temperature 36.6 C 06/25/25 11:03 Pulse Rate 56 L 06/25/25 11:03 Respiratory Rate 16 06/25/25 11:03 Blood Pressure 118/74 06/25/25 11:03 Pulse Oximetry 99 06/25/25 11:03 Oxygen Delivery Room Air 06/25/25 11:03 Temperature 36.6 C 06/25/25 11:03 Pulse Rate 56 L 06/25/25 11:03 Respiratory Rate 16 06/25/25 11:03 Blood Pressure 118/74 06/25/25 11:03 Pulse Oximetry 99 06/25/25 11:03 Oxygen Delivery Room Air 06/25/25 11:03 Discharge Plan Discharge Clinical Impression: Sinusitis, Nausea & vomiting Patient Disposition: Home Condition: Stable Instructions: Antibiotic Form, Sinusitis (ED), Acute Nausea and Vomiting (ED) Patient Language: Bel[place]an Prescriptions: New doxycycline hyclate 100 mg capsule 100 mg PO BID 10 Days Qty: 20 0RF ondansetron 4 mg tablet,disintegrating 4 mg PO Q8H Qty: 15 0RF No Action montelukast [Singulair] 10 mg Tablet 10 mg PO DAILY pravastatin 20 mg Tablet 20 mg PO DAILY folic acid 1 mg tablet 1 mg PO DAILY bupropion HCl 150 mg tablet extended release 24 hr 150 mg PO DAILY chlorthalidone 25 mg tablet 25 mg PO DAILY omeprazole 20 mg capsule,delayed release(DR/EC) ciprofloxacin HCl 250 mg tablet 250 mg PO Q12H 5 Days Qty: 10 0RF losartan 100 mg tablet 100 mg PO DAILY Follow-up/Referrals: Geo Chopra [Other] Stand Alone Forms: Work/School Release IP Time of Disposition: 11:47
== END 2025-06-25 12:01 | disposition home or self-care (01) ==
PROVIDERS: Emergency Provider Nurse Practitioner
DX: J32.9 Chronic sinusitis, unspecified (principal); R11.2 Nausea with vomiting, unspecified; K21.9 Gastro-esophageal reflux disease without esophagitis; E78.00 Pure hypercholesterolemia, unspecified; I10 Essential (primary) hypertension; J45.909 Unspecified asthma, uncomplicated; F41.9 Anxiety disorder, unspecified; F32.A Depression, unspecified; Z86.16 Personal history of COVID-19
CPT/HCPCS: 99213; G0463

== ENCOUNTER 2025-09-02 10:04 | Emergency (ER) | payer OTHER, SELFPAY ==
[2025-09-02 10:11] VITALS: BP 131/77; PULSE 80; RESP 16; TEMP 36.1; O2SAT 98
--- NOTE | 2025-09-02 11:04 | ED.SKABFB ---
HPI - Skin/Abscess/Foreign Bdy General Chief complaint: Skin/Abscess/Foreign Body Stated complaint: left thumb Time Seen by Provider: 09/02/25 10:45 Source: patient and RN notes reviewed Mode of arrival: ambulatory Limitations: no limitations History of Present Illness HPI narrative: 49-year-old male presents Express Care complaining of left thumb pain and swelling. Patient said a week ago he injured his left thumb at work causing laceration, he states he had sutures placed 1 week ago. Said he is not supposed to have been taken for another 3-4 days. Patient said last 2 days he has noticed increased redness and swelling to his thumb. He reports his thumb feels tight having a hard time bending it. Patient denies any drainage, fevers, body aches chills, nausea vomiting, or any other symptoms. Related Data Home Medications ?Medication ?Instructions ?Recorded ?Confirmed ?Last Taken ?Type montelukast 10 mg tablet 10 mg PO DAILY 12/23/20 03/16/25 Unknown History (Singulair) losartan 100 mg tablet 100 mg PO DAILY 03/23/22 03/16/25 Unknown History folic acid 1 mg tablet 1 mg PO DAILY 12/04/23 03/16/25 Unknown History chlorthalidone 25 mg tablet 25 mg PO DAILY 08/18/24 03/16/25 Unknown History Allergies Allergy/AdvReac Type Severity Reaction Status Date / Time aspirin Allergy Intermediate Swelling Verified 09/02/25 10:17 of Lip/Tongue/Throat gabapentin Allergy Intermediate Swelling Verified 09/02/25 10:17 amoxicillin Allergy Mild Rash Verified 09/02/25 10:17 tomato Allergy Mild Ulcers Verified 09/02/25 10:17 cephalexin Allergy Unknown Unknown Verified 09/02/25 10:17 Review of Systems Review of Systems: CONSTITUTIONAL: Denies fever, chills, or sweats. EYES: Denies visual changes, redness, or discharge. ENT: Denies rhinorrhea, congestion, sore throat, or otalgia. CARDIOVASCULAR: Denies chest pain, palpitations, or edema. RESPIRATORY: Denies cough or dyspnea. GASTROINTESTINAL: Denies abdominal pain, nausea, vomiting, or diarrhea. GENITOURINARY: Denies dysuria or hematuria. SKIN: Denies rash or itching. Positive for wound, redness, swelling. MUSCULOSKELETAL: Denies back pain, joint pain, or myalgia. NEUROLOGIC: Denies headache, numbness, or weakness. PSYCHIATRIC: Denies anxiety or depression. All other systems reviewed are negative, except as documented in HPI. [facility] Past Medical History Medical History History of dental problems Wrist fracture bilateral Ankle fracture bilateral GERD (gastroesophageal reflux disease) COVID-19 may Fibromyalgia Hypercholesterolemia Hypertension Bipolar 1 disorder Anxiety and depression IBS (irritable bowel syndrome) Asthma Surgical History Surgical History Hx of elbow surgery bilateral Hx of brain surgery trauma as child Family History Family History Mother Family history non-contributory Social History Social History Smoking status: Never smoker Alcohol intake: unknown Substance use type: does not use Living arrangements: with family Gender identity (if verbalized by the patient): Male Comments At the time of my signature, I reviewed and agree with the nursing past medical, surgical, social, and family history. There is no relevant family history pertinent to the patient complaint. Exam Narrative: GENERAL: This is a well-nourished, well-developed adult, in no apparent distress. They are non ill-appearing, nontoxic appearing. HEAD: normocephalic, atraumatic. EYES: Sclera clear/white. Conjunctiva normal. Vision is grossly intact. Extraocular movements intact EARS: External ears normal,Hearing grossly intact. NOSE: External nose normal THROAT: Mucous membranes moist, NECK: Neck supple CARDIOVASCULAR: Regular rate and rhythm RESPIRATORY: Respiratory rate normal, respiratory effort nonlabored, no respiratory distress SKIN: Left thumb: Laceration present to dorsal surface of distal thumb. Sutures present. Wound is erythematous and warm to touch. It is tender to palpate. There is pain through full range of motion of thumb. Capillary refill less than 2 seconds. Sensation intact. Neurovascular status intact distal to injury. Nail bed and plate intact. No area of fluctuance, no induration, no exudate. NEURO: awake, alert, and oriented to person, place and time. There were no obvious focal neurologic abnormalities. EXTREMITIES: No joint tenderness, effusion, or edema noted. Course Course Emergency Course: Portions of this record may have been created with voice recognition software Level of Care: Express Care Visit Vital Signs Vital signs: Vital Signs Temperature 97 F L 09/02/25 10:11 Pulse Rate 80 09/02/25 10:11 Respiratory Rate 16 09/02/25 10:11 Blood Pressure 131/77 09/02/25 10:11 Pulse Oximetry 98 09/02/25 10:11 Oxygen Delivery Room Air 09/02/25 10:11 Temperature 97 F L 09/02/25 10:11 Pulse Rate 80 09/02/25 10:11 Respiratory Rate 16 09/02/25 10:11 Blood Pressure 131/77 09/02/25 10:11 Pulse Oximetry 98 09/02/25 10:11 Oxygen Delivery Room Air 09/02/25 10:11 Reviewed MDM - Skin/Abscess/Foreign Bdy MDM Narrative Medical decision making narrative: Appears patient likely has cellulitis. Patient's allergy to Keflex and penicillins. Will treat with doxycycline. Advised patient to have sutures removed as scheduled. Discussed physical exam findings. Advised supportive measures and signs/symptoms to go to the ER. Pt is appropriate for outpt treatment and f/u. Differential Diagnosis Differential diagnosis: Likely abscess of skin or subcutaneous tissue, cellulitis and other (Wound check) Critical Care Time Critical Care Time Critical Care Time: No Discharge Plan Discharge Clinical Impression: Cellulitis Patient Disposition: Home Condition: Stable Instructions: Antibiotic Form, Cellulitis (ED) Additional Instructions: Clean with soap and water only; Avoid using alcohol and peroxide. Keep wound dry and covered, using non adherent dressing such as a Band-Aid. You may apply Vaseline to the wound daily. Avoid dirty water to the wound has healed completely. Apply cold compresses 10-15 minutes at a time few times a day to help with pain and swelling. Take antibiotic until it's gone. Please wear sunscreen appear to be outside while taking doxycycline. Please get the stitches removed as scheduled. Please schedule a follow up visit with your personal physician for further evaluation and treatment within 3-5days OR if your symptoms persist, change or worsen significantly before you can contact your personal physician then please, without delay, go to the emergency department for further evaluation. Patient Language: Kiswahili Prescriptions: New doxycycline monohydrate 100 mg capsule 100 mg PO BID 7 Days Qty: 14 0RF No Action montelukast [Singulair] 10 mg Tablet 10 mg PO DAILY folic acid 1 mg tablet 1 mg PO DAILY chlorthalidone 25 mg tablet 25 mg PO DAILY losartan 100 mg tablet 100 mg PO DAILY Follow-up/Referrals: Jori,Franco Mcrae MD [Primary Care Provider] Time of Disposition: 11:03
== END 2025-09-02 11:06 | disposition home or self-care (01) ==
PROVIDERS: PCP Family Medicine
DX: T81.49XA Infection following a procedure, other surgical site, initial encounter (principal); L03.012 Cellulitis of left finger; I10 Essential (primary) hypertension; E78.00 Pure hypercholesterolemia, unspecified; J45.909 Unspecified asthma, uncomplicated; K21.9 Gastro-esophageal reflux disease without esophagitis; Z86.16 Personal history of COVID-19
CPT/HCPCS: 99213; G0463